=== PATIENT | female | born 1980 | race Caucasian/White ===

== ENCOUNTER 2016-10-22 14:00 | Outpatient (RCR) | payer MEDICAID | END 2016-10-23 | disposition home or self-care (01) | LOC: M OUTALCOH 14:00 | PROVIDERS: ATTEND Psychiatry & Neurology Psychiatry | DX: F10.20 Alcohol dependence, uncomplicated (principal); F12.20 Cannabis dependence, uncomplicated; Z72.0 Tobacco use ==

== ENCOUNTER 2016-11-15 16:00 | Outpatient (RCR) | payer MEDICAID | END 2016-11-20 | LOC: M OUTALCOH 16:00 | PROVIDERS: ATTEND Psychiatry & Neurology Psychiatry | DX: F10.20 Alcohol dependence, uncomplicated (principal); F12.20 Cannabis dependence, uncomplicated; Z72.0 Tobacco use ==

== ENCOUNTER 2016-12-20 15:00 | Outpatient (RCR) | payer OTHER | END 2016-12-21 | LOC: M OUTALCOH 15:00 | PROVIDERS: ATTEND Psychiatry & Neurology Psychiatry | DX: F10.20 Alcohol dependence, uncomplicated (principal); F12.20 Cannabis dependence, uncomplicated; Z72.0 Tobacco use ==

== ENCOUNTER 2017-01-18 10:00 | Outpatient (RCR) | payer OTHER | END 2017-01-20 | LOC: M OUTALCOH 10:00 | PROVIDERS: ATTEND Psychiatry & Neurology Psychiatry | DX: F10.20 Alcohol dependence, uncomplicated (principal); F12.20 Cannabis dependence, uncomplicated; Z72.0 Tobacco use ==

== ENCOUNTER → 2017-02-20 | Outpatient (RCR) | payer OTHER | LOC: M OUTALCOH 01-23 15:48 | PROVIDERS: ATTEND Psychiatry & Neurology Psychiatry | DX: F10.20 Alcohol dependence, uncomplicated (principal); F12.20 Cannabis dependence, uncomplicated; Z72.0 Tobacco use ==

== ENCOUNTER → 2017-03-22 | Outpatient (RCR) | payer OTHER | LOC: M OUTALCOH 02-22 10:52 | PROVIDERS: ATTEND Psychiatry & Neurology Psychiatry | DX: Z13.9 Encounter for screening, unspecified (principal); F10.20 Alcohol dependence, uncomplicated; F12.20 Cannabis dependence, uncomplicated; Z72.0 Tobacco use ==

== ENCOUNTER 2017-04-18 10:00 | Outpatient (RCR) | payer OTHER | END 2017-04-22 | LOC: M OUTALCOH 10:00 | PROVIDERS: ATTEND Psychiatry & Neurology Psychiatry | DX: F10.20 Alcohol dependence, uncomplicated (principal); F12.20 Cannabis dependence, uncomplicated; Z72.0 Tobacco use ==

== ENCOUNTER → 2017-05-23 | Outpatient (RCR) | payer OTHER | LOC: M OUTALCOH 04-30 14:52 | PROVIDERS: ATTEND Psychiatry & Neurology Psychiatry | DX: F10.20 Alcohol dependence, uncomplicated (principal); F12.20 Cannabis dependence, uncomplicated; F17.210 Nicotine dependence, cigarettes, uncomplicated ==

== ENCOUNTER 2017-06-20 10:00 | Outpatient (RCR) | payer OTHER | END 2017-06-22 | LOC: M OUTALCOH 10:00 | PROVIDERS: ATTEND Psychiatry & Neurology Psychiatry | DX: F10.20 Alcohol dependence, uncomplicated (principal); F12.20 Cannabis dependence, uncomplicated; Z72.0 Tobacco use ==

== ENCOUNTER → 2017-08-22 | Outpatient (RCR) | payer OTHER | LOC: M OUTALCOH 07-25 16:00 | PROVIDERS: ATTEND Psychiatry & Neurology Psychiatry | DX: F10.20 Alcohol dependence, uncomplicated (principal); Z72.0 Tobacco use; F12.20 Cannabis dependence, uncomplicated ==

== ENCOUNTER 2017-09-19 15:33 | Outpatient (RCR) | payer OTHER | END 2017-09-22 | LOC: M OUTALCOH 15:33 | DX: F10.20 Alcohol dependence, uncomplicated (principal); Z72.0 Tobacco use; F12.20 Cannabis dependence, uncomplicated ==

== ENCOUNTER 2017-10-03 16:00 | Outpatient (RCR) | payer OTHER | END 2017-10-23 | LOC: M OUTALCOH 10-07 16:00 | DX: F10.20 Alcohol dependence, uncomplicated (principal); Z72.0 Tobacco use; F12.20 Cannabis dependence, uncomplicated ==

== ENCOUNTER 2017-11-06 16:00 | Outpatient (RCR) | payer OTHER | END 2017-11-20 | LOC: M OUTALCOH 11-11 16:00 | DX: F10.20 Alcohol dependence, uncomplicated (principal); Z72.0 Tobacco use; F12.20 Cannabis dependence, uncomplicated ==

== ENCOUNTER → 2017-11-18 | Outpatient (CLI) | payer OTHER | LOC: M SLEEP 19:24 | DX: G47.33 Obstructive sleep apnea (adult) (pediatric) (principal) | CPT/HCPCS: 95810 ==

== ENCOUNTER 2017-11-25 11:31 | Outpatient (RCR) | payer OTHER | END 2017-12-21 | LOC: M OUTALCOH 11-27 15:00 | DX: F10.20 Alcohol dependence, uncomplicated (principal); Z72.0 Tobacco use; F12.20 Cannabis dependence, uncomplicated ==

== ENCOUNTER → 2017-12-11 | Outpatient (CLI) | payer OTHER | LOC: M SLEEP 19:21 | DX: G47.33 Obstructive sleep apnea (adult) (pediatric) (principal) | CPT/HCPCS: 95811 ==

== ENCOUNTER 2017-12-25 10:25 | Outpatient (RCR) | payer OTHER | END 2018-01-20 | LOC: M OUTALCOH 10:25 | DX: F10.20 Alcohol dependence, uncomplicated (principal); F12.20 Cannabis dependence, uncomplicated; Z72.0 Tobacco use ==

== ENCOUNTER 2018-01-22 10:09 | Outpatient (RCR) | payer OTHER | END 2018-02-20 | LOC: M OUTALCOH 10:09 | DX: F10.20 Alcohol dependence, uncomplicated (principal); F12.20 Cannabis dependence, uncomplicated; Z72.0 Tobacco use ==

== ENCOUNTER 2018-02-27 14:35 | Outpatient (RCR) | payer OTHER | END 2018-03-22 | LOC: M OUTALCOH 14:35 | DX: F10.20 Alcohol dependence, uncomplicated (principal); Z72.0 Tobacco use; F12.20 Cannabis dependence, uncomplicated ==

== ENCOUNTER 2018-03-31 13:19 | Inpatient (IN) | payer OTHER ==
[2018-03-31] MEDS: NICOTINE 7 MG/24 HR TRANSDERMAL TD (09:00)
[2018-03-31 14:27] LABS: HEMATOCRIT 38.4 % (36.0-47.0); HEMOGLOBIN 13.6 g/dl (12.0-15.5); MEAN CORPUSCULAR HEMOGLOBIN 33.2 pg (27.0-33.0); MEAN CORPUSCULAR HGB CONC 35.4 g/dl (32.0-36.5); MEAN CORPUSCULAR VOLUME 93.7 fl (80.0-96.0); PLATELET COUNT, AUTOMATED 146 10^3/uL (150-450); RED CELL DISTRIBUTION WIDTH 12.2 % (11.5-14.5); WHITE BLOOD COUNT 8.6 10^3/uL (4.0-10.0)
[2018-03-31 14:51] LABS: CONTROL LINE HCG INT CTR LINE PRESENT; HCG, SERUM QUALITATIVE NEGATIVE (NEGATIVE)
[2018-03-31 15:06] LABS: ALBUMIN 4.1 GM/DL (3.2-5.2); ALBUMIN/GLOBULIN RATIO 1.03 (1.00-1.93); ALKALINE PHOSPHATASE 102 U/L (45-117); ALT/SGPT 36 U/L (12-78); ANION GAP 17 MEQ/L (8-16); AST/SGOT 42 U/L (7-37); BILIRUBIN,DIRECT 0.5 MG/DL (0.0-0.2); BILIRUBIN,TOTAL 1.2 MG/DL (0.2-1.0); BLOOD UREA NITROGEN 8 MG/DL (7-18); CALCIUM LEVEL 8.9 MG/DL (8.5-10.1); CARBON DIOXIDE LEVEL 22 MEQ/L (21-32); CHLORIDE LEVEL 100 MEQ/L (98-107); CREATININE FOR GFR 0.66 MG/DL (0.55-1.30); ETHYL ALCOHOL (ETHANOL) 0.035 % (0.000-0.010); GLOMERULAR FILTRATION RATE > 60.0 (>60); GLUCOSE, FASTING 102 MG/DL (70-100); POTASSIUM SERUM 3.9 MEQ/L (3.5-5.1); SALICYLATE LEVEL < 1.7 MG/DL (5.0-30.0); SODIUM LEVEL 139 MEQ/L (136-145); TOTAL PROTEIN 8.1 GM/DL (6.4-8.2)
[2018-03-31 15:09] LABS: ACETAMINOPHEN LEVEL < 2.0 UG/ML (10.0-30.0)
[2018-03-31 16:19] LABS: AMPHETAMINES LEVEL URINE NEGATIVE (NEGATIVE); BARBITURATES URINE NEGATIVE (NEGATIVE); BENZODIAZEPINES URINE NEGATIVE (NEGATIVE); CANNABINOIDS URINE NEGATIVE (NEGATIVE); COCAINE METABOLITE URINE NEGATIVE (NEGATIVE); METHADONE URINE NEGATIVE (NEGATIVE); OPIATES URINE NEGATIVE (NEGATIVE); PHENCYCLIDINE URINE NEGATIVE (NEGATIVE)
[2018-03-31] MEDS ORDERED: MAALOX 30 ML SUSP *UDC PO (18:15)
[2018-03-31] MEDS ORDERED: MOM 30ML SUSPENSION UDC PO (18:15)
[2018-03-31] MEDS: ACAMPROSATE CALCIUM 333 MG TABLET (CAMPRAL) PO (21:50)
[2018-04-01] MEDS: VENLAFAXINE **XR** 75MG CAPSULE PO (08:42)
[2018-04-01] MEDS: ACAMPROSATE CALCIUM 333 MG TABLET (CAMPRAL) PO ×3 (08:42→21:51)
[2018-04-01] MEDS: NICOTINE 7 MG/24 HR TRANSDERMAL TD (09:00)
[2018-04-01] MEDS: FEXOFENADINE 60 MG TAB PO (11:13)
[2018-04-01] MEDS: FERROUS SULFATE 325MG TAB PO (11:14)
[2018-04-01] MEDS: FAMOTIDINE 20 MG TAB PO (11:14)
[2018-04-01] MEDS: PANTOPRAZOLE 40MG TAB (PROTONIX) PO (11:14)
[2018-04-01] MEDS: GABAPENTIN 300 MG CAP PO ×3 (11:14→21:49)
[2018-04-01] MEDS: levETIRAcetam 250MG TABLET (KEPPRA) PO ×2 (11:14→21:49)
[2018-04-01] MEDS: LOSARTAN 50 MG TAB PO (11:21)
[2018-04-01] MEDS: hydroCHLOROthiazide 12.5 MG CAPSULE PO (14:12)
[2018-04-01 16:59] LABS: BEDSIDE GLUCOSE 146 MG/DL (70-105)
[2018-04-01] MEDS: metFORMIN (GLUCOPHAGE) 1000 MG TABLET PO (17:43)
[2018-04-02 06:26] LABS: BEDSIDE GLUCOSE 124 MG/DL (70-105)
[2018-04-02] MEDS: VENLAFAXINE **XR** 75MG CAPSULE PO (08:49)
[2018-04-02] MEDS: ACAMPROSATE CALCIUM 333 MG TABLET (CAMPRAL) PO ×3 (08:50→21:17)
[2018-04-02] MEDS: FAMOTIDINE 20 MG TAB PO (08:50)
[2018-04-02] MEDS: FERROUS SULFATE 325MG TAB PO (08:50)
[2018-04-02] MEDS: GABAPENTIN 300 MG CAP PO ×3 (08:50→21:18)
[2018-04-02] MEDS: hydroCHLOROthiazide 12.5 MG CAPSULE PO (08:50)
[2018-04-02] MEDS: FEXOFENADINE 60 MG TAB PO (08:50)
[2018-04-02] MEDS: PANTOPRAZOLE 40MG TAB (PROTONIX) PO (08:50)
[2018-04-02] MEDS: levETIRAcetam 250MG TABLET (KEPPRA) PO ×2 (08:50→21:18)
[2018-04-02] MEDS: metFORMIN (GLUCOPHAGE) 1000 MG TABLET PO ×2 (08:50→17:19)
[2018-04-02] MEDS: LOSARTAN 50 MG TAB PO (08:51)
[2018-04-02] MEDS: NICOTINE 7 MG/24 HR TRANSDERMAL TD (08:51)
[2018-04-02] MEDS: metFORMIN (GLUCOPHAGE) 500 MG TAB PO (11:39)
[2018-04-02 16:14] LABS: BEDSIDE GLUCOSE 138 MG/DL (70-105)
[2018-04-02] MEDS: diphenhydrAMINE 25 MG CAP PO (16:14)
[2018-04-02 18:58] LABS: ALBUMIN 3.7 GM/DL (3.2-5.2); ALBUMIN/GLOBULIN RATIO 0.88 (1.00-1.93); ALKALINE PHOSPHATASE 123 U/L (45-117); ALT/SGPT 34 U/L (12-78); ANION GAP 11 MEQ/L (8-16); AST/SGOT 59 U/L (7-37); BLOOD UREA NITROGEN 13 MG/DL (7-18); CALCIUM LEVEL 9.1 MG/DL (8.5-10.1); CARBON DIOXIDE LEVEL 26 MEQ/L (21-32); CHLORIDE LEVEL 102 MEQ/L (98-107); CREATININE FOR GFR 0.98 MG/DL (0.55-1.30); GLOMERULAR FILTRATION RATE > 60.0 (>60); GLUCOSE, FASTING 109 MG/DL (70-100); SODIUM LEVEL 139 MEQ/L (136-145); TOTAL PROTEIN 7.9 GM/DL (6.4-8.2)
[2018-04-03 06:35] LABS: BEDSIDE GLUCOSE 90 MG/DL (70-105)
[2018-04-03 08:00] LABS: BASO # 0.1 10^3/uL (0.0-0.2); BASO % 0.8 % (0.0-1.0); EOS # 0.4 10^3/uL (0.0-0.50); EOS % 6.5 % (0.0-3.0); HEMATOCRIT 39.4 % (36.0-47.0); HEMOGLOBIN 13.9 g/dl (12.0-15.5); IMMATURE GRANULOCYTE % 0.3 % (0-3.0); LYMPH % 34.2 % (24.0-44.0); MEAN CORPUSCULAR HEMOGLOBIN 33.3 pg (27.0-33.0); MEAN CORPUSCULAR HGB CONC 35.3 g/dl (32.0-36.5); MEAN CORPUSCULAR VOLUME 94.3 fl (80.0-96.0); MONO # 0.5 10^3/uL (0.0-0.8); NEUTROPHILS % 50.2 % (36.0-66.0); PLATELET COUNT, AUTOMATED 127 10^3/uL (150-450); RED BLOOD COUNT 4.18 10^6/uL (4.00-5.40); RED CELL DISTRIBUTION WIDTH 12.5 % (11.5-14.5)
[2018-04-03 08:20] LABS: ALBUMIN 3.8 GM/DL (3.2-5.2); ALBUMIN/GLOBULIN RATIO 0.88 (1.00-1.93); ALKALINE PHOSPHATASE 118 U/L (45-117); ALT/SGPT 35 U/L (12-78); ANION GAP 7 MEQ/L (8-16); AST/SGOT 51 U/L (7-37); BILIRUBIN,TOTAL 1.9 MG/DL (0.2-1.0); BLOOD UREA NITROGEN 12 MG/DL (7-18); CALCIUM LEVEL 9.4 MG/DL (8.5-10.1); CARBON DIOXIDE LEVEL 31 MEQ/L (21-32); CHLORIDE LEVEL 103 MEQ/L (98-107); CREATININE FOR GFR 0.71 MG/DL (0.55-1.30); GLOMERULAR FILTRATION RATE > 60.0 (>60); GLUCOSE, FASTING 153 MG/DL (70-100); POTASSIUM SERUM 3.8 MEQ/L (3.5-5.1); SODIUM LEVEL 141 MEQ/L (136-145); TOTAL PROTEIN 8.1 GM/DL (6.4-8.2)
[2018-04-03] MEDS: NICOTINE 7 MG/24 HR TRANSDERMAL TD (09:00)
[2018-04-03] MEDS: VENLAFAXINE **XR** 75MG CAPSULE PO (09:16)
[2018-04-03] MEDS: PANTOPRAZOLE 40MG TAB (PROTONIX) PO (09:16)
[2018-04-03] MEDS: hydroCHLOROthiazide 12.5 MG CAPSULE PO (09:17)
[2018-04-03] MEDS: levETIRAcetam 250MG TABLET (KEPPRA) PO ×2 (09:17→20:51)
[2018-04-03] MEDS: LOSARTAN 50 MG TAB PO (09:17)
[2018-04-03] MEDS: metFORMIN (GLUCOPHAGE) 1000 MG TABLET PO ×2 (09:17→17:01)
[2018-04-03] MEDS: GABAPENTIN 300 MG CAP PO ×3 (09:17→20:53)
[2018-04-03] MEDS: FEXOFENADINE 60 MG TAB PO (09:18)
[2018-04-03] MEDS: FERROUS SULFATE 325MG TAB PO (09:18)
[2018-04-03] MEDS: ACAMPROSATE CALCIUM 333 MG TABLET (CAMPRAL) PO ×3 (09:18→20:50)
[2018-04-03] MEDS: FAMOTIDINE 20 MG TAB PO (09:18)
[2018-04-03] MEDS: metFORMIN (GLUCOPHAGE) 500 MG TAB PO (11:36)
[2018-04-03 16:30] LABS: BEDSIDE GLUCOSE 146 MG/DL (70-105)
[2018-04-03] MEDS: NAPROXEN 250 MG TAB PO (20:51)
[2018-04-03] MEDS: traZODone 50 MG TAB PO (22:31)
[2018-04-04 00:12] LABS: LEVETIRACETAM (KEPPRA) 45.1 ug/mL (10.0-40.0)
[2018-04-04 06:33] LABS: BEDSIDE GLUCOSE 120 MG/DL (70-105)
[2018-04-04] MEDS: LOSARTAN 50 MG TAB PO (08:43)
[2018-04-04] MEDS: PANTOPRAZOLE 40MG TAB (PROTONIX) PO (08:43)
[2018-04-04] MEDS: VENLAFAXINE **XR** 75MG CAPSULE PO (08:43)
[2018-04-04] MEDS: FERROUS SULFATE 325MG TAB PO (08:43)
[2018-04-04] MEDS: metFORMIN (GLUCOPHAGE) 1000 MG TABLET PO (08:44)
[2018-04-04] MEDS: FAMOTIDINE 20 MG TAB PO (08:44)
[2018-04-04] MEDS: hydroCHLOROthiazide 12.5 MG CAPSULE PO (08:44)
[2018-04-04] MEDS: ACAMPROSATE CALCIUM 333 MG TABLET (CAMPRAL) PO (08:44)
[2018-04-04] MEDS: levETIRAcetam 250MG TABLET (KEPPRA) PO (08:44)
[2018-04-04] MEDS: GABAPENTIN 300 MG CAP PO (08:44)
[2018-04-04] MEDS: FEXOFENADINE 60 MG TAB PO (08:44)
[2018-04-04] MEDS: NICOTINE 7 MG/24 HR TRANSDERMAL TD (08:46)
[2018-04-04] MEDS: metFORMIN (GLUCOPHAGE) 500 MG TAB PO (11:20)
== END 2018-04-04 14:45 | disposition home or self-care (01) | DRG 775 ==
LOC: M ED 13:19 → M ED INP 18:05 → M PSY 19:15
DX: F10.14 Alcohol abuse with alcohol-induced mood disorder (principal); F10.129 Alcohol abuse with intoxication, unspecified; F34.1 Dysthymic disorder; G40.909 Epilepsy, unspecified, not intractable, without status epilepticus; K21.9 Gastro-esophageal reflux disease without esophagitis; E11.9 Type 2 diabetes mellitus without complications; I10 Essential (primary) hypertension; J30.9 Allergic rhinitis, unspecified; G47.33 Obstructive sleep apnea (adult) (pediatric); E66.9 Obesity, unspecified; Z68.41 Body mass index [BMI] 40.0-44.9, adult; R21 Rash and other nonspecific skin eruption; F17.210 Nicotine dependence, cigarettes, uncomplicated; E61.1 Iron deficiency; Z79.84 Long term (current) use of oral hypoglycemic drugs; Z79.899 Other long term (current) drug therapy; Z87.820 Personal history of traumatic brain injury

== ENCOUNTER 2018-04-10 15:07 | Outpatient (RCR) | payer OTHER | END 2018-04-22 | LOC: M OUTALCOH 15:07 | DX: F10.20 Alcohol dependence, uncomplicated (principal); F12.20 Cannabis dependence, uncomplicated; Z72.0 Tobacco use ==

== ENCOUNTER 2018-05-29 15:28 | Outpatient (RCR) | payer OTHER | END 2018-06-22 | LOC: M OUTALCOH 06-05 11:00 | DX: F10.20 Alcohol dependence, uncomplicated (principal); Z72.0 Tobacco use; F12.20 Cannabis dependence, uncomplicated ==

== ENCOUNTER 2018-07-22 14:28 | Outpatient (RCR) | payer OTHER | END 2018-07-23 | LOC: M OUTALCOH 14:28 | DX: F10.20 Alcohol dependence, uncomplicated (principal); Z72.0 Tobacco use; F12.20 Cannabis dependence, uncomplicated ==

== ENCOUNTER 2018-07-30 10:30 | Outpatient (RCR) | payer OTHER | END 2018-08-22 | LOC: M OUTALCOH 08-21 11:00 | DX: F10.20 Alcohol dependence, uncomplicated (principal); F12.20 Cannabis dependence, uncomplicated; Z72.0 Tobacco use ==

== ENCOUNTER 2018-09-11 11:00 | Outpatient (RCR) | payer OTHER ==
[~2018-09-11 11:00] MED LIST: ACAM0.05 PO; B COTAB3 PO; EFFE150C2 PO; FERR1TAB8 PO; FEXO180T58 PO; GABA-843 PO; LEVE750T5 PO; LOSA50TA5 PO; METF10004 PO; METF500T13 PO; NAPR500T6 PO; PANT40TA3 PO; TRAZO50TA PO; VENL75CA47 PO; VITA-122 PO; VIVI380I IM
[2018-09-19] MEDS ORDERED: GABA-1171 PO (23:31)
[2018-09-19] MEDS ORDERED: VITA1TAB27 PO (23:31)
[2018-09-19] MEDS ORDERED: FERR325T16 PO (23:31)
[2018-09-19] MEDS ORDERED: FURO20TA2 PO (23:32)
[2018-09-19] MEDS ORDERED: FOLI1TAB11 PO (23:32)
[2018-09-19] MEDS ORDERED: GLIP5TAB8 PO (23:32)
[2018-09-19] MEDS ORDERED: SPIR50TA4 PO (23:32)
[2018-09-19] MEDS ORDERED: POTA1TAB14 PO (23:32)
[2018-09-19] MEDS ORDERED: TAB-TAB PO (23:32)
[2018-09-19] MEDS ORDERED: CITA20TA4 PO (23:32)
[2018-09-19] MEDS ORDERED: VENL75CA47 PO (23:35)
[2018-09-19] MEDS ORDERED: VIVI380I IM (23:38)
[2018-09-19] MEDS ORDERED: ACAM0.05 PO (23:38)
== END 2018-09-22 ==
LOC: M OUTALCOH 11:00
PROVIDERS: ATTEND Psychiatry & Neurology Psychiatry
DX: F10.20 Alcohol dependence, uncomplicated (principal); F12.20 Cannabis dependence, uncomplicated; Z72.0 Tobacco use

== ENCOUNTER 2018-09-19 18:49 | Emergency (ER) | payer OTHER ==
[~2018-09-19] VITALS: Ht 177.8 cm; Wt 113.6 kg
[2018-09-19 19:50] LABS: VENOUS HCO3 27.7 MEQ/L (23.0-27.0); VENOUS O2 SATURATION 62.6 % (60.0-80.0); VENOUS PARTIAL PRESSURE O2 33.9 mmHg (30.0-50.0); VENOUS STANDARD HCO3 27.3 MEQ/L; VENOUS TOTAL CO2 28.8 MEQ/L (24.0-28.0)
[2018-09-19 19:55] LABS: HEMATOCRIT 32.3 % (36.0-47.0); HEMOGLOBIN 11.1 g/dl (12.0-15.5); MEAN CORPUSCULAR HEMOGLOBIN 32.5 pg (27.0-33.0); MEAN CORPUSCULAR HGB CONC 34.4 g/dl (32.0-36.5); MEAN CORPUSCULAR VOLUME 94.4 fl (80.0-96.0); RED BLOOD COUNT 3.42 10^6/uL (4.00-5.40); WHITE BLOOD COUNT 13.8 10^3/uL (4.0-10.0)
[2018-09-19 20:18] LABS: PLATELET COUNT, AUTOMATED 84 10^3/uL (150-450)
[2018-09-19 20:19] LABS: OSMOLALITY SERUM 292 MOSM/KG (275-295)
[2018-09-19 20:22] LABS: EOSINOPHILS 3 % (0-5); LYMPHOCYTES 6 % (16-52); METAMYELOCYTES 5 % (0-0); MONOCYTES 4 % (0-8); NEUTROPHILS 60 % (35-75); PLATELET ESTIMATE DECREASED (NORMAL); TOXIC GRANULATION 1+
[2018-09-19 20:23] LABS: OVALOCYTES 1+; POLYCHROMASIA 1+; TOXIC VACUOLATION 1+
[2018-09-19 20:27] LABS: HCG, SERUM QUALITATIVE NEGATIVE (NEGATIVE)
[2018-09-19] MEDS ORDERED: NS 1,000 ML IV ONE (20:45)
[2018-09-19 20:47] LABS: ALBUMIN 2.2 GM/DL (3.2-5.2); ALT/SGPT 34 U/L (12-78); BILIRUBIN,DIRECT 4.7 MG/DL (0.0-0.2); BILIRUBIN,TOTAL 7.4 MG/DL (0.2-1.0); BLOOD UREA NITROGEN 15 MG/DL (7-18); CALCIUM LEVEL 8.1 MG/DL (8.5-10.1); CARBON DIOXIDE LEVEL 27 MEQ/L (21-32); CHLORIDE LEVEL 103 MEQ/L (98-107); CPK CREATINE PHOSPHOKINASE 508 U/L (26-192); ETHYL ALCOHOL (ETHANOL) < 0.003 % (0.000-0.010); GLOMERULAR FILTRATION RATE > 60.0 (>60); GLUCOSE, FASTING 89 MG/DL (70-100); MB/CK RELATIVE INDEX 0.57 (< OR =4); POTASSIUM SERUM 3.2 MEQ/L (3.5-5.1); SODIUM LEVEL 140 MEQ/L (136-145); TOTAL PROTEIN 6.9 GM/DL (6.4-8.2); TROPONIN I < 0.02 NG/ML (< 0.10)
[2018-09-19 20:48] LABS: ACETAMINOPHEN LEVEL < 2.0 UG/ML (10.0-30.0); SALICYLATE LEVEL < 1.7 MG/DL (5.0-30.0)
--- NOTE | 2018-09-19 20:52 | REP ---
Clinical: Altered mental status and trauma . Technique: Axial noncontrast images from the skull base to the thoracic inlet with coronal and sagittal re-formations Findings: Normal alignment and lordosis is maintained. Coronal images demonstrate mild levoconvex scoliosis. Cervical vertebral bodies including transverse processes and spinous processes are intact and there is no evidence for acute fracture / compression injury or subluxation. Spinal canal is patent. Posterior elements are intact. Paravertebral soft tissues are normal. Impression: Normal age-appropriate noncontrast cervical spine CT. No evidence for acute pathology or trauma/injury. Electronically Signed by Scott Tenorio MD 09/19/2018 08:43 P
--- NOTE | 2018-09-19 20:54 | REP ---
Clinical: Trauma. Technique: Axial noncontrast images through the facial bones to include the mandible with coronal and sagittal re-formations. Findings: Evidence for prior right craniotomy involving the visualized frontotemporal region. The osseous structures are otherwise intact and there is no evidence for fracture or dislocation. Specifically, the bilateral zygomatic arches, nasal bones, and mandible including bilateral temporomandibular joints appear normal and symmetric. The sinuses and mastoid air cells are all well aerated and clear without fluid level to suggest occult trauma. The bilateral orbits including the globes and intraconal contents appear symmetric and normal. The surrounding soft tissues are grossly unremarkable. Impression: Right frontotemporal craniotomy. No evidence for acute pathology or trauma/injury. Electronically Signed by Scott Tenorio MD 09/19/2018 08:45 P
--- NOTE | 2018-09-19 20:54 | REP ---
Clinical: Altered mental status. Technique: Axial noncontrast images from the skull base to the vertex. Comparison: None. Findings: The patient is status post craniotomy involving the right hemisphere with underlying postsurgical changes including volume loss and encephalomalacia. The ventricles are symmetric. Robbins-white differentiation is relatively well maintained. No acute intracranial hemorrhage, mass or mass effect. No acute extra-axial fluid collection. No acute calvarial trauma or pathology. Sinuses and mastoid air cells are clear. Impression: 1. Postsurgical changes involving the right hemisphere including prior craniotomy with underlying volume loss and encephalomalacia. 2. No acute intracranial pathology or trauma/injury appreciated. Electronically Signed by Scott Tenorio MD 09/19/2018 08:45 P
[2018-09-19] MEDS ORDERED: ISOVUE-370 76% 100ML VIAL (Q9967) As Ordered ONE (20:55)
--- NOTE | 2018-09-19 21:04 | ECGEPIP ---
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
[2018-09-19 21:19] LABS: INR 2.54; PROTHROMBIN TIME 27.9 SECONDS (12.1-14.4)
[2018-09-19 21:20] LABS: PARTIAL THROMBOPLASTIN TIME 38.7 SECONDS (25.4-37.6)
--- NOTE | 2018-09-19 22:08 | REP ---
Clinical: Leukocytosis with given history of altered mental status and trauma. Technique: Axial contrast enhanced images from the thoracic inlet to the upper abdomen using 100 ml Isovue 370 intravenous contrast material including coronal and sagittal re-formations. Findings: Marked alveolar opacities are asymmetrically identified involving the right hemithorax. Early ground-glass opacities and subtle alveolar infiltrates are also noted forming within the left upper lobe and left lower lobe. No pleural effusion. No pneumothorax. Tracheobronchial tree appears patent. No adenopathy. Thoracic aorta appears normal. Heart and pericardium are grossly unremarkable and without cardiomegaly or pericardial effusion. Surrounding musculoskeletal structures appear intact. Limited upper abdomen demonstrates dilated gallbladder with cholelithiasis as well as nodular contour to the liver and increased upper abdominal vasculature suggesting cirrhosis and portal venous hypertension. Evidence for gastric bypass surgery noted. Impression: 1. Findings suggest predominately asymmetric unilateral pulmonary air space disease. Differential diagnosis includes but is not limited to unilateral pulmonary edema which may be related to underlying mitral regurgitation, cardiac dysfunction, pneumonitis, and trauma. 2. Upper abdomen demonstrates cholelithiasis along with findings to suggest cirrhosis and portal venous hypertension. Electronically Signed by Scott Tenorio MD 09/19/2018 10:00 P
--- NOTE | 2018-09-19 22:13 | REP ---
Clinical: Leukocytosis with given history of altered mental status and trauma. Technique: Axial contrast enhanced images from the lung bases to the pubic symphysis using 100 ml Isovue 370 intravenous contrast material with coronal and sagittal re-formations. Comparison: None. Findings: Lung bases demonstrate asymmetric right-sided air space disease. The liver has a subtle nodular contour and increased vascularity within the upper abdomen including esophageal varices is consistent with cirrhosis and portal venous hypertension. Spleen, pancreas, bilateral adrenal glands and kidneys are grossly normal. The gallbladder is distended with multiple gallstones but no wall thickening or pericholecystic fluid to suggest acute cholecystitis. The enteric system demonstrates evidence for gastric bypass surgery. Diffuse colonic diverticulosis noted without acute diverticulitis. Mesenteric infiltration and mild mural thickening involving the ascending colon is nonspecific in the setting of cirrhosis. There is no evidence for bowel obstruction. Pelvis demonstrates collapsed normal bladder and age-appropriate uterus/adnexa. No significant ascites. No free air. No significant adenopathy. Abdominal aorta without aneurysm or dissection. Musculoskeletal structures without focal osseous abnormality. Impression: 1. Above-mentioned findings are consistent with cirrhosis and portal venous hypertension. 2. Cholelithiasis. 3. Scattered diverticular disease without acute diverticulitis. Electronically Signed by Scott Tenorio MD 09/19/2018 10:05 P
[2018-09-19 23:09] LABS: AMPHETAMINES LEVEL URINE NEGATIVE (NEGATIVE); BARBITURATES URINE NEGATIVE (NEGATIVE); BENZODIAZEPINES URINE NEGATIVE (NEGATIVE); CANNABINOIDS URINE NEGATIVE (NEGATIVE); COCAINE METABOLITE URINE NEGATIVE (NEGATIVE); METHADONE URINE NEGATIVE (NEGATIVE); OPIATES URINE NEGATIVE (NEGATIVE); PHENCYCLIDINE URINE NEGATIVE (NEGATIVE)
[2018-09-19] MEDS ORDERED: PIPERACILLIN/TAZOBACTAM SOD 3.375 GM in D5W MINI-BAG PLUS 50 ML IV ONE (23:15)
[2018-09-19] MEDS ORDERED: FERR325T16 PO (23:31)
[2018-09-19] MEDS ORDERED: VITA1TAB27 PO (23:31)
[2018-09-19] MEDS ORDERED: GABA-1171 PO (23:31)
[2018-09-19] MEDS ORDERED: CITA20TA4 PO (23:32)
[2018-09-19] MEDS ORDERED: FURO20TA2 PO (23:32)
[2018-09-19] MEDS ORDERED: TAB-TAB PO (23:32)
[2018-09-19] MEDS ORDERED: FOLI1TAB11 PO (23:32)
[2018-09-19] MEDS ORDERED: SPIR50TA4 PO (23:32)
[2018-09-19] MEDS ORDERED: POTA1TAB14 PO (23:32)
[2018-09-19] MEDS ORDERED: GLIP5TAB8 PO (23:32)
[2018-09-19] MEDS ORDERED: VENL75CA47 PO (23:35)
[2018-09-19] MEDS ORDERED: ACAM0.05 PO (23:38)
[2018-09-19] MEDS ORDERED: VIVI380I IM (23:38)
[2018-09-20 01:00] VITALS: BP 118/58
--- NOTE | 2018-09-20 07:30 | REP ---
Clinical: Chest pain and altered mental status. Technique: Upright AP view of the chest. Findings: Right-sided infiltrates are appreciated. No effusion. No pneumothorax. Mediastinum and cardiac silhouette are grossly normal. Skeletal structures are grossly intact. Impression: Limited portable chest x-ray with right sided opacities/infiltrates. Electronically Signed by Scott Tenorio MD 09/20/2018 07:22 A
== END 2018-09-20 01:23 | disposition home or self-care (01) ==
LOC: EDBD 18:49 → M ED 18:49
DX: R41.82 Altered mental status, unspecified (principal); K81.9 Cholecystitis, unspecified; K74.60 Unspecified cirrhosis of liver; Z79.899 Other long term (current) drug therapy
CPT/HCPCS: 36415; 70450; 70486; 71045; 71260; 72125; 74177; 80048; 80076; 80307; 82140; 82550; 82553; 82803; 83605; 83930; 84443; 84703; 85025; 85049; 85055; 85610; 85730; 87040; 93005; 93041; 96361; 96374; 99285; G0480; J2543; Q9967

== ENCOUNTER 2018-09-24 11:23 | Inpatient (IN) | payer OTHER ==
[~2018-09-24] VITALS: Ht 177.8 cm; Wt 133.7 kg
[~2018-09-24 11:23] MED LIST changes: +CITA20TA4 PO; +FERR325T16 PO; +FOLI1TAB11 PO; +FURO20TA2 PO; +GABA-1171 PO; +GLIP5TAB8 PO; +POTA1TAB14 PO; +SPIR50TA4 PO; +TAB-TAB PO; +VITA1TAB27 PO
[2018-09-24 12:07] LABS: HEMATOCRIT 34.5 % (36.0-47.0); HEMOGLOBIN 11.5 g/dl (12.0-15.5); MEAN CORPUSCULAR HEMOGLOBIN 32.5 pg (27.0-33.0); MEAN CORPUSCULAR HGB CONC 33.3 g/dl (32.0-36.5); MEAN CORPUSCULAR VOLUME 97.5 fl (80.0-96.0); PLATELET COUNT, AUTOMATED 121 10^3/uL (150-450); RED BLOOD COUNT 3.54 10^6/uL (4.00-5.40); WHITE BLOOD COUNT 9.1 10^3/uL (4.0-10.0)
[2018-09-24 12:53] LABS: ACETAMINOPHEN LEVEL < 2.0 UG/ML (10.0-30.0); ALT/SGPT 48 U/L (12-78); BILIRUBIN,DIRECT 3.8 MG/DL (0.0-0.2); BILIRUBIN,TOTAL 5.1 MG/DL (0.2-1.0); BLOOD UREA NITROGEN 5 MG/DL (7-18); CALCIUM LEVEL 7.7 MG/DL (8.5-10.1); CARBON DIOXIDE LEVEL 24 MEQ/L (21-32); CHLORIDE LEVEL 104 MEQ/L (98-107); CREATININE FOR GFR 0.74 MG/DL (0.55-1.30); ETHYL ALCOHOL (ETHANOL) 0.044 % (0.000-0.010); GLOMERULAR FILTRATION RATE > 60.0 (>60); GLUCOSE, FASTING 74 MG/DL (70-100); POTASSIUM SERUM 3.2 MEQ/L (3.5-5.1); SALICYLATE LEVEL < 1.7 MG/DL (5.0-30.0); SODIUM LEVEL 139 MEQ/L (136-145); TOTAL PROTEIN 6.7 GM/DL (6.4-8.2)
[2018-09-24] MEDS ORDERED: CERTTAB8 PO ×2 (12:58)
[2018-09-24] MEDS ORDERED: THERTAB PO (12:58)
[2018-09-24] MEDS ORDERED: AMOX875T2 PO (12:58)
[2018-09-24 13:02] LABS: HCG, SERUM QUALITATIVE NEGATIVE (NEGATIVE)
[2018-09-24 13:14] LABS: AMPHETAMINES LEVEL URINE NEGATIVE (NEGATIVE); BARBITURATES URINE NEGATIVE (NEGATIVE); BENZODIAZEPINES URINE NEGATIVE (NEGATIVE); CANNABINOIDS URINE NEGATIVE (NEGATIVE); COCAINE METABOLITE URINE NEGATIVE (NEGATIVE); METHADONE URINE NEGATIVE (NEGATIVE); OPIATES URINE NEGATIVE (NEGATIVE); PHENCYCLIDINE URINE NEGATIVE (NEGATIVE)
[2018-09-24] MEDS ORDERED: levETIRAcetam 250MG TABLET (KEPPRA) PO ONE (13:15)
[2018-09-24] MEDS ORDERED: glipiZIDE (GLUCOTROL) 5 MG TAB PO ONE (13:15)
[2018-09-24] MEDS ORDERED: POTASSIUM CHLORIDE 10 MEQ SR TABLET PO ONE (14:15)
[2018-09-24] MEDS ORDERED: LORazepam 2 MG TAB PO PRN (14:30)
[2018-09-24] MEDS ORDERED: MOM 30ML SUSPENSION UDC PO PRN (14:30)
[2018-09-24] MEDS ORDERED: MAALOX 30 ML SUSP *UDC PO PRN (14:30)
[2018-09-24] MEDS: MULTIVITAMINS/MINERALS THERAP 1 TAB PO SCH (14:48)
[2018-09-24] MEDS: FOLIC ACID 1 MG TAB PO SCH (14:55)
[2018-09-24] MEDS ORDERED: THIAMINE 100 MG TAB PO ONE (15:00)
[2018-09-24 17:00] VITALS: BP 152/78
[2018-09-24] MEDS: GABAPENTIN 100 MG CAP PO SCH ×2 (17:11→21:55)
[2018-09-24 17:42] VITALS: BP 152/78
[2018-09-24] MEDS: AUGMENTIN 875 MG TAB PO SCH (21:55)
[2018-09-24] MEDS: levETIRAcetam 250MG TABLET (KEPPRA) PO SCH (21:56)
[2018-09-24] MEDS: POTASSIUM CHLORIDE 10 MEQ SR TABLET PO SCH (21:56)
[2018-09-24] MEDS: THIAMINE 100 MG TAB PO SCH (21:56)
[2018-09-25 06:22] VITALS: BP 132/62
[2018-09-25] MEDS ORDERED: glipiZIDE (GLUCOTROL) 5 MG TAB PO SCH (07:30)
[2018-09-25] MEDS ORDERED: MUPIROCIN 2% OINT 22 GM TUBE TOP SCH (09:00)
[2018-09-25] MEDS: SPIRONOLACTONE 50 MG TAB PO SCH (09:19)
[2018-09-25] MEDS: FERROUS GLUCONATE 324 MG TAB PO SCH (09:19)
[2018-09-25] MEDS: AUGMENTIN 875 MG TAB PO SCH ×2 (09:20→20:34)
[2018-09-25] MEDS: levETIRAcetam 250MG TABLET (KEPPRA) PO SCH ×2 (09:20→20:35)
[2018-09-25] MEDS: CitaloPRAM (CeleXA) 20 MG TAB PO SCH (09:21)
[2018-09-25] MEDS: GABAPENTIN 100 MG CAP PO SCH ×3 (09:21→20:35)
[2018-09-25] MEDS: FOLIC ACID 1 MG TAB PO SCH (09:21)
[2018-09-25] MEDS: THIAMINE 100 MG TAB PO SCH ×2 (09:21→20:36)
[2018-09-25] MEDS: PANTOPRAZOLE 40MG TAB (PROTONIX) PO SCH (09:21)
[2018-09-25] MEDS: MULTIVITAMINS/MINERALS THERAP 1 TAB PO SCH (09:21)
[2018-09-25] MEDS: POTASSIUM CHLORIDE 10 MEQ SR TABLET PO SCH ×2 (09:22→20:35)
[2018-09-25] MEDS ORDERED: GLUCAGON FOR INJ 1 MG VIAL (J1610) SC PRN (09:45)
[2018-09-25] MEDS ORDERED: GLUCOSE 4 GM CHEW TABLET PO PRN (09:45)
[2018-09-25] MEDS ORDERED: DEXTROSE 50% 50 ML SYRINGE IV PRN (09:45)
[2018-09-25 10:05] LABS: HEMATOCRIT 33.4 % (36.0-47.0); HEMOGLOBIN 10.9 g/dl (12.0-15.5); MEAN CORPUSCULAR HEMOGLOBIN 32.3 pg (27.0-33.0); MEAN CORPUSCULAR HGB CONC 32.6 g/dl (32.0-36.5); MEAN CORPUSCULAR VOLUME 99.1 fl (80.0-96.0); PLATELET COUNT, AUTOMATED 133 10^3/uL (150-450); RED BLOOD COUNT 3.37 10^6/uL (4.00-5.40); WHITE BLOOD COUNT 10.9 10^3/uL (4.0-10.0)
--- NOTE | 2018-09-25 10:13 | HPEPDOC ---
[facility] Medical History & Physical Date of Admission Sep 24, 2018 History and Physical PCP: [facility], [place] ATTENDING: Dr. Kenyetta Andre HPI: 37 yo F [facility] unspecified [facility] disorder, being medically examined today. The patient is noted to be a very poor historian and response with "I don't know" to many questions. She provides very vague responses. The patient is able to provide little history regarding her recent hospitalization. The patient was seen in the emergency department 09/19/18 related to altered mental status and was apparently not taking her medications for history of cirrhosis. She was subsequently transferred to [facility] in [place] related to altered mental status/sclerosis. At the time of her evaluation 09/19/18 in the emergency department bruises to the chin and right chest were noted at that time. The patient is noted to still have bruising in the same areas. The patient states she cannot recall how they occurred. She states she may have fallen or had a seizure. She denies any falls or seizure activity since her discharge from [facility] on 09/22/18. The patient has a history of alcohol use, the patient states she had a few drinks with a neighbor on 09/23/18. She is also reporting a wound on the left buttock area, she cannot recall how long it has been there, or how it occurred. She states she is finishing a course of Augmentin for treatment of pneumonia following her discharge from [facility]. She states she has had diarrhea over the past few days. Denies any fevers, chills, weakness, fatigue, MITCHELL, CP, SOB, cough, palpitations, abdominal pain, N/V/D or changes in bowel or bladder habits. PMHx: Anxiety Depression Substance use Alcohol use. History of SI Seizure disorder. Per Patient, has leg shaking and falling. Follows with Dr Aviles. GERD NIDDM Iron deficiency Hypertension Allergic rhinitis SHANIKA, CPAP. Obesity. BMI 42.0 Cirrhosis. Follows with [facility]. PSHX: History of skull fracture status post fall in a parking lot 2014, chronic head pain. Gastric bypass Right ankle as a child SOCHX: Resides in: [facility]. Marital Status: Single Kids: None Employment: Unemployed Tobacco use: 4-5 per day ETOH: History of alcohol use since her early 20s. Patient states she drinks 1-2 times per week 2 drinks. She states she had "a few" drinks on 09/23/18 following her discharge from [facility] 09/22/18. Illicit Drugs: Previous marijuana use IV Drug Use: Denies Tattoos done unprofessionally: Denies FAMHX: Mother: Alive, hypertension, diabetes Father: Alive, well Siblings: One sister, half brother Alive, unknown Children: None Unexpected deaths due to medical reasons: None. ROS: As noted in HPI, otherwise 11pt ROS of systems reviewed and remarkable only for LMP unknown. PE: GEN: 37 yo F, appears unkept. No acute distress. Alert and oriented x 3. Slow to respond to questions. HEENT: Normocephalic, atraumatic. Pupils are equal, round, and reactive to light. Extraocular movements are intact. No nystagmus appreciated. Sclera are mildly icteric. Conjunctiva without injection. Nose midline. Nasal turbinates without bogginess. EACs both patent BL. TMs both visualized and [place] with good cone of light, no bulging or erythema. No facial asymmetry. Moist mucous membranes. Neck supple, trachea midline. No lymphadenopathy or thyromegaly appreciated. CHEST: Regular rate and rhythm, +S1, +S2 LUNGS: Clear to auscultation bilaterally. No wheezes, rales, or rhonchi. Breathing appears symmetric and easy. Patient is speaking in full sentences. No accessory muscle use. ABD: Round, soft, non-tender, non-distended. +Bowel sounds throughout. No rebound or guarding. No costovertebral angle tenderness. EXT: Pulses 2+ bilaterally dorsalis pedis and radial. No lower extremity edema appreciated. SKIN: [place], dry, warm. Capillary refill <2sec. Wound noted, approximately 10cm x 12 cm area Rt buttuck extending to Buttock fold with erythema, TTP. NEURO: Alert and oriented x 3. Cranial nerves III-XII are intact. No focal deficits appreciated. EKG: SINUS TACHYCARDIA WITH SHORT [place] INTERVAL WITH OCCASIONAL ATRIAL PREMATURE COMPLEXES NONSPECIFIC T-WAVE ABNORMALITY SIMILAR TO 04/01/18 Electronically Signed On 09-19-2018 21:03:49 EST by Tong Mcnamara A&P: 37 yo F [facility] for unspecified depressive disorder 1. Psych. Plan per Psychiatry. EKG on file. 2. NIDDM. Consistent carbohydrate diet. Hold glipizide as patient was noted to be hypoglycemic this morning at 0643 hrs., 41. Increased to 99 at 0723 hrs. Fingerstick blood sugar before meals at bedtime with sliding scale coverage. 3. Chronic head pain. Continue gabapentin. Continue ibuprofen 400 mg every 6 hours as needed. Avoid Tylenol. Consider pain management if needed. 4. GERD. Continue Protonix 40 mg daily. 5. Iron deficiency. Continue iron supplement. Hemoglobin is noted to be 11.5. 6. Cirrhosis. Continue outpatient follow-up with [facility] in [place]. Continue Aldactone 50 mg by mouth daily. MELD-Na 23 Update ammonia level. Update PT/INR. Update CMP this a.m. 7. SHANIKA. Continue CPAP with home settings. 8. Seizure disorder. Unclear when her last seizure occurred. Bruising is noted to the chin and right chest area however this is documented at the time of her emergency department evaluation 09/19/18 and subsequent transfer to [facility]. Continue Keppra 1500 mg by mouth twice a day. Keppra level is pending. Seizure precautions. Continue outpatient follow-up with neurology. 9 Follow up with PCP on discharge. 10. Substance use. Management per psychiatry. 11. Buttock wound. Wound culture pending. Dry dressing twice a day. Apply Bactroban twice a day. Wound consult pending. Patient currently remains on course of Augmentin 875 mg by mouth twice a day. 12. Diarrhea. Patient is able to provide very little additional history but states she has had loose bowel movements for the past few days. She denies abdominal pain. MAXIMUM TEMPERATURE 99.7. WBC on admission 9.1. Update CBC/CMP. Request UA with reflex culture. Request GI panel. Add Bacid BID. Monitor. 13. Recent pneumonia. The patient states she was treated for pneumonia during recent hospitalization at [facility] in [place]. She was discharged 09/22/18 to finish course of oral Augmentin 875 mg by mouth twice a day as outpatient. She denies cough. MAXIMUM TEMPERATURE as above. WBC on admission as above. Update chest x-ray. Continue Augmentin 875 mg by mouth twice a day. Update CBC/CMP. 14. Hypokalemia. S/P supplement in ED. KCl Supplement 20 mEq by mouth twice a day. Update CMP. Add Mag level. Monitor. 15. Staff member Crystal present throughout exam. Addendum. Reviewed pt with Dr Terry who will follow pt 09/26/18-09/29/18 and monitor labs. Vital Signs Vital Signs Date Time Temp Pulse Resp B/P (MAP) Pulse Ox O2 Delivery O2 Flow Rate FiO2 09/25/18 06:22 99.7 81 16 132/62 (85) Room Air 09/24/18 17:00 96 Laboratory Data Labs 24H Laboratory Tests 2 09/24/18 11:55: Nucleated Red Blood Cells % (auto) 0.9H, Anion Gap 11, Glomerular Filtration Rate > 60.0, Calcium Level 7.7L, Aspartate Amino Transf (AST/SGOT) 100H, Alanine Aminotransferase (ALT/SGPT) 48, Alkaline Phosphatase 102, Total Bilirubin 5.1H, Direct Bilirubin 3.8H, Total Protein 6.7, Albumin 2.0L, Albumin/Globulin Ratio 0.43L, Thyroid Stimulating Hormone (TSH) 2.510, Human Chorionic Gonadotropin, Qual NEGATIVE, Salicylates Level < 1.7L, Acetaminophen Level < 2.0L, Ethyl A lcohol Level 0.044H 09/24/18 12:27: Urine Amphetamines Screen NEGATIVE, Urine Benzodiazepines Screen NEGATIVE, Urine Opiates Screen NEGATIVE, Urine Methadone Screen NEGATIVE, Urine Barbiturates Screen NEGATIVE, Urine Phencyclidine Screen NEGATIVE, Urine Cocaine Metabolite Screen NEGATIVE, Urine Cannabinoids Screen NEGATIVE 09/25/18 06:43: Bedside Glucose (Misc Panel) 41L 09/25/18 07:05: Bedside Glucose (Misc Panel) 52L 09/25/18 07:23: Bedside Glucose (Misc Panel) 99 CBC/BMP Laboratory Tests 09/24/18 11:55 Red Blood Count 3.54 L, Mean Corpuscular Volume 97.5 H, Mean Corpuscular Hemoglobin 32.5, Mean Corpuscular Hemoglobin Concent 33.3, Red Cell Distribution Width 19.4 H Home Medications Scheduled (B Complex) 1 Tab Tab, 1 TAB PO DAILY (Therapeutic Multi Vitamin) 1 Tab Tab, 1 TAB PO DAILY (Certavite Senior/Antioxid) 1 Tab Tab, 1 TAB PO DAILY Amoxicillin/Clavulanate Potas (Amoxicillin/Clavulanate P 875-125 mg) 1 Tab Tab, 1 TAB PO BID X 7 DAYS. Cholecalciferol (Vitamin D3) 50,000 Unit Tab, 50,000 UNIT PO QMONTH TAKES THE OF THE MONTH. Citalopram Hydrobromide (Citalopram Hydrobromide) 20 Mg Tab, 20 MG PO DAILY Ferrous Gluconate (Ferrous Gluconate) 324 Mg Tab, 324 MG PO DAILY Folic Acid (Folic Acid) 1 Mg Tab, 1 MG PO DAILY Gabapentin (Gabapentin) 100 Mg Cap, 100 MG PO TID Glipizide (Glipizide) 5 Mg Tab, 5 MG PO DAILY Levetiracetam (Levetiracetam) 750 Mg Tab, 1,500 MG PO BID Pantoprazole Sodium (Pantoprazole Sodium) 40 Mg Tab, 40 MG PO DAILY Potassium Chloride (Potassium Chloride ER) 20 Meq Tab, 20 MEQ PO BID Spironolactone (Spironolactone) 50 Mg Tab, 50 MG PO DAILY Allergies Coded Allergies: No Known Drug Allergy (Verified Allergy, Unknown, 09/24/18) Lety Magana Sep 25, 2018 10:13
[2018-09-25 10:50] LABS: ALBUMIN 1.8 GM/DL (3.2-5.2); ALT/SGPT 44 U/L (12-78); BILIRUBIN,TOTAL 4.7 MG/DL (0.2-1.0); BLOOD UREA NITROGEN 6 MG/DL (7-18); CALCIUM LEVEL 7.9 MG/DL (8.5-10.1); CARBON DIOXIDE LEVEL 25 MEQ/L (21-32); CHLORIDE LEVEL 101 MEQ/L (98-107); GLOMERULAR FILTRATION RATE > 60.0 (>60); GLUCOSE, FASTING 139 MG/DL (70-100); SODIUM LEVEL 133 MEQ/L (136-145); TOTAL PROTEIN 6.7 GM/DL (6.4-8.2)
--- NOTE | 2018-09-25 11:02 | REP ---
CHEST X-RAY: TWO VIEWS. HISTORY: Recent pneumonia. COMPARISON: Chest x-ray, September 19, 2018. Comparison chest CT study is reviewed from the same date. FINDINGS: There is extensive consolidation again noted throughout much of the right lung. Principally, this involves the right upper lobe, but there is consolidation in the right lower lobe as well. No visible infiltrate is noted on the left. No pleural effusion is seen. Radiographically, the infiltrate is a little more opaque. It is no more extensive. IMPRESSION: Extensive consolidation in the right lung consistent with pneumonia. This is somewhat more opaque or consolidated than on the prior study. Electronically Signed by Lokesh Kim MD 09/25/2018 05:00 P
[2018-09-25 11:08] LABS: INR 1.74; PROTHROMBIN TIME 20.6 SECONDS (12.1-14.4)
[2018-09-25 11:38] VITALS: BP 132/62
[2018-09-25] MEDS: HumaLOG INSULIN (NovoLOG) PER UNIT SC SCH ×3 (11:45→20:37)
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
[2018-09-25 12:28] LABS: MAGNESIUM LEVEL 1.5 MG/DL (1.8-2.4)
[2018-09-25] MEDS ORDERED: POTASSIUM CHLORIDE 10 MEQ SR TABLET PO ONE (13:00)
[2018-09-25] MEDS: MAGNESIUM OXIDE 400 MG TAB (MAG-OX) PO SCH (13:31)
[2018-09-25] MEDS: DIAPER RELIEF PASTE (DESITIN) 60GM TOP SCH ×2 (14:45→20:38)
--- NOTE | 2018-09-25 14:56 | CR ---
ADVANCED WOUND CARE CONSULT VIA TELEMEDICINE: DATE: 09/25/2018 CONSULT REQUESTED BY: EPHRAIM Craft regarding left and right buttocks wounds. HISTORY OF PRESENT ILLNESS: 37-year-old female admitted [facility] the [facility] for depression and a history of previous seizure disorder. The patient has not been taking her medications on a regular basis, is very vague about her recent past history, and is unsure why she has had bruising on her abdomen and chest and wounds involving the buttocks. She cannot recall a fall or any trauma. She has been recently hospitalized at [facility] for pneumonia and has a history of cirrhosis of the liver. The patient does not appear in any acute distress and can verbally communicate although was vague about specific occurrences and cannot give exact details. On the left buttocks area there is a partial-thickness wound measuring 19.0 cm x 8.5 cm with a wound depth of less than 0.1 cm. the wound base shows granulation tissue with areas of superficial epithelialization, there are no deep structures seen and no evidence of necrotic eschar. The wound edges are demarcated and the periwound shows no erythema, maceration or ischemic change. The wound drainage is minimal and serous. On the medial aspect of the right buttocks there is a similar wound measuring 9.5 cm x 4.0 cm with a wound depth of less than 0.1 cm. This wound is partial-thickness. There is no significant drainage noted. Wound edges are demarcated and the periwound shows no erythema, maceration or ischemic change. There is no fluctuation involving either wound. The patient has a history of recent diarrhea, however, these wounds are not consistent with incontinence dermatitis. They do not overlie any bony prominence and therefore do not qualify for a pressure injury. The clinical impression is local trauma producing skin tears consistent with abrasions. These wounds do not have the appearance of incontinent-induced dermatitis. Prior treatment had been dry sterile dressing changed twice a day applying Bactroban twice a day. While hospitalized in [place] she received antibiotic therapy for pneumonia but at present is not on any antibiotic medication. These are partial thickness wounds. The treatment is a hydrocolloid dressing to be applied to right and left buttock wounds. Hydrocolloid dressings can remain in place for 2-3 days or more and then should be changed. There is no indication for dry sterile dressings and there is no indication for Bactroban ointment. There is no indication for oral antibiotic therapy. When the patient's medications have been stabilized and her clinical state has stabilized she can be referred to our clinic for wound care follow-up if indicated. LICHA
[2018-09-25 18:00] VITALS: BP 136/63
[2018-09-25 18:05] VITALS: BP 136/63
[2018-09-25] MEDS: LACTOBACILLUS ACIDOPHILUS CAP (BACID) PO SCH (18:13)
[2018-09-25] MEDS: IBUPROFEN 400 MG TAB PO PRN (20:35)
[2018-09-26 06:16] VITALS: BP 116/62
[2018-09-26] MEDS: HumaLOG INSULIN (NovoLOG) PER UNIT SC SCH ×4 (06:33→21:00)
[2018-09-26 06:53] LABS: HEMATOCRIT 32.9 % (36.0-47.0); HEMOGLOBIN 10.9 g/dl (12.0-15.5); MEAN CORPUSCULAR HEMOGLOBIN 32.8 pg (27.0-33.0); MEAN CORPUSCULAR HGB CONC 33.1 g/dl (32.0-36.5); MEAN CORPUSCULAR VOLUME 99.1 fl (80.0-96.0); PLATELET COUNT, AUTOMATED 138 10^3/uL (150-450); RED BLOOD COUNT 3.32 10^6/uL (4.00-5.40); WHITE BLOOD COUNT 8.4 10^3/uL (4.0-10.0)
[2018-09-26 07:04] LABS: INR 1.77; PROTHROMBIN TIME 20.9 SECONDS (12.1-14.4)
[2018-09-26 07:30] VITALS: BP 116/62
[2018-09-26 07:34] LABS: ALBUMIN 1.8 GM/DL (3.2-5.2); ALT/SGPT 44 U/L (12-78); BILIRUBIN,TOTAL 4.2 MG/DL (0.2-1.0); BLOOD UREA NITROGEN 5 MG/DL (7-18); CALCIUM LEVEL 7.9 MG/DL (8.5-10.1); CARBON DIOXIDE LEVEL 28 MEQ/L (21-32); CHLORIDE LEVEL 108 MEQ/L (98-107); CREATININE FOR GFR 0.86 MG/DL (0.55-1.30); GLOMERULAR FILTRATION RATE > 60.0 (>60); GLUCOSE, FASTING 67 MG/DL (70-100); MAGNESIUM LEVEL 1.7 MG/DL (1.8-2.4); POTASSIUM SERUM 3.8 MEQ/L (3.5-5.1); SODIUM LEVEL 142 MEQ/L (136-145); TOTAL PROTEIN 6.2 GM/DL (6.4-8.2)
[2018-09-26] MEDS: AUGMENTIN 875 MG TAB PO SCH ×2 (09:44→21:16)
[2018-09-26] MEDS: POTASSIUM CHLORIDE 10 MEQ SR TABLET PO SCH ×2 (09:44→21:16)
[2018-09-26] MEDS: levETIRAcetam 250MG TABLET (KEPPRA) PO SCH ×2 (09:44→21:16)
[2018-09-26] MEDS: THIAMINE 100 MG TAB PO SCH ×2 (09:44→21:16)
[2018-09-26] MEDS: FERROUS GLUCONATE 324 MG TAB PO SCH (09:44)
[2018-09-26] MEDS: SPIRONOLACTONE 50 MG TAB PO SCH (09:45)
[2018-09-26] MEDS: MULTIVITAMINS/MINERALS THERAP 1 TAB PO SCH (09:45)
[2018-09-26] MEDS: LACTOBACILLUS ACIDOPHILUS CAP (BACID) PO SCH ×2 (09:45→18:00)
[2018-09-26] MEDS: GABAPENTIN 100 MG CAP PO SCH ×3 (09:45→21:15)
[2018-09-26] MEDS: FOLIC ACID 1 MG TAB PO SCH (09:45)
[2018-09-26] MEDS: MAGNESIUM OXIDE 400 MG TAB (MAG-OX) PO SCH (09:45)
[2018-09-26] MEDS: PANTOPRAZOLE 40MG TAB (PROTONIX) PO SCH (09:45)
[2018-09-26] MEDS: CitaloPRAM (CeleXA) 20 MG TAB PO SCH (09:45)
[2018-09-26] MEDS: DIAPER RELIEF PASTE (DESITIN) 60GM TOP SCH ×2 (09:45→21:00)
--- NOTE | 2018-09-26 10:11 | MHIPNPDOC ---
[facility] Progress Note Progress Note DATE OF SERVICE: 09/26/18 HISTORY: Patient is a 37 -year-old , female, with a history of depression d/c [facility] 03/2018 who was admitted after telling her CM that She was suicidal with plan to drink herself to due to family stressors. In the ED pt reported feeling tired of being a disappointment to her family and depression over the "not wanting to see me" over the holidays. Pt stated she was recently treated at [facility] for Pneumonia and when d/c had a seizure (has seizure d/o on keppra) waiting for ride home. Pt admitted to drinking 2 mini bottles of wine night prior admission and BAL in ED 0.044. Nursing staff in ED noted ecchymosis right chest/chin/right shoulder and rash on buttocks. Pt seen today and states she tired of her family making her feel like a disappointment b/c they don't want to be around her if she's been drinking. Pt states she had been doing well but "slipped up" and relapsed right before [place]. States she was drinking 1-2 days/wk roughly 1 liter of wine each day ("I have to finish the bottle"). States she knows her family wants her to get the help for her alcohol use and encouraged her to go to meeting that she admits she hasn't been to one yet b/c "I feel like a hypocrite b/c I'm still drinking." States Celexa is beneficial for her mood but it's her drinking that makes her depressed. Denies alcohol withdrawal symptoms here. Denies current si/hi, hallucinations, delusions. Feels safe here. VITAL SIGNS: See below. NEW TEST RESULTS: See below. CURRENT MEDICATIONS: See below. MENTAL STATUS EXAMINATION: General Appearance: disheveled, appears stated age, hospital scrubs/clothing Build: overweight Demeanor: average Activity: average, anxious Behavior: cooperative Speech: clear, spontaneous, normal volume, reg/rate,rhythm,volume Mood: less depressed, anxious Mood "better" Affect: improved range, congruent, anxious Thought Process: logical/linear, depressed, other (self blame and self depricating) Thought Content (Delusions): none reported, denies SI, HI, AVH Thought Content (Other): none reported Thought Content (Aggressive): none reported Perception (Hallucinations): none reported Perception (Other): none reported Cognition (Impairment of): none reported Cognition(Intelligence Est.): average Oriented: Awake, Alert, Oriented times three Insight: fair Judgment: Fair Psychosis: Denies DIAGNOSES: Major Depressive D/O recurrent, moderate, w/o psychosis Alcohol use d/o TBI Hx ASSESSMENT:Pt seen and states that her mood is better and denies alcohol withdrawal symptoms. Per treatment team, pt's outpatient CM wants pt to go to inpatient substance abuse treatment as she has been unsuccessful with outpatient substance abuse treatment. Spoke with pt, that I, treatment team, and CM recommend she be referred to inpatient substance abuse treatment directly after discharged from [facility] as she is more likely to go with direct admission. Pt hesitant but finally agreed to go admitted it would be go for her and her relationship with her family. States she's being social on the milieu which is beneficial. States she slept well last night. Feels she is tolerating her medications and they're beneficial. She is attending groups and finding them helpful. She denies insomnia, SI/HI, hallucinations, delusionsc alcohol withdrawal symptoms. Pt feels safe here. MANAGEMENT PLAN: continue current plan. Refer to inpatient substance abuse treatment. Medications: [facility] protocol keppra 1500mg bid celexa 20mg daily TIME SPENT: 30 minutes. Vital Signs Vital Signs Date Time Temp Pulse Resp B/P (MAP) Pulse Ox O2 Delivery O2 Flow Rate FiO2 09/26/18 06:16 98.1 82 14 116/62 (80) Room Air 09/24/18 17:00 96 Laboratory Data 24H Labs Laboratory Tests 2 09/25/18 10:24: Prothrombin Time 20.6H, Prothromb Time International Ratio 1.74, Ammonia 46H 09/25/18 10:42: Urine Color YELLOW, Urine Appearance CLEAR, Urine pH 7.0, Urine Specific [place] 1.003, Urine Protein NEGATIVE, Urine Glucose (UA) NEGATIVE, Urine Ketones NEGATIVE, Urine Blood 1+H, Urine Nitrite NEGATIVE, Urine Bilirubin NEGATIVE, U rine Urobilinogen 2.0H, Urine Leukocyte Esterase NEGATIVE, Urine WBC (Auto) 1, Urine RBC (Auto) 2, Urine Hyaline Casts (Auto) 0, Urine Bacteria (Auto) NEGATIVE, Urine Squamous Epithelial Cells 2, Urine Sperm (Auto) 09/25/18 11:43: Bedside Glucose (Misc Panel) 86 09/25/18 17:16: Bedside Glucose (Misc Panel) 89 09/25/18 20:34: Bedside Glucose (Misc Panel) 115H 09/26/18 06:28: Bedside Glucose (Misc Panel) 59L 09/26/18 06:35: Nucleated Red Blood Cells % (auto) 0.4H, Prothrombin Time 20.9H, Prothromb Time International Ratio 1.77, Anion Gap 6L, Glomerular Filtration Rate > 60.0, Estimated Mean Plasma Glucose 68, Hemoglobin A1c 4.0, Blood Urea Nitrogen 5L, Creatinine 0.86, Sodium Level 142#, Potassium Level 3.8#, Chloride Level 108H, Carbon Dioxide Level 28, Calcium Level 7.9L, Aspartate Amino Transf (AST/SGOT) 82H, Alanine Aminotransferase (ALT/SGPT) 44, Alkaline Phosphatase 149H, Total Bilirubin 4.2H, Total Protein 6.2L, Albumin 1.8L, Magnesium Level 1.7L, Ammonia 29, Albumin/Globulin Ratio 0.41L CBC/BMP Laboratory Tests 09/26/18 06:35 Red Blood Count 3.32 L, Mean Corpuscular Volume 99.1 H, Mean Corpuscular Hemoglobin 32.8, Mean Corpuscular Hemoglobin Concent 33.1, Red Cell Distribution Width 20.1 H, Calcium Level 7.9 L, Aspartate Amino Transf (AST/SGOT) 82 H, José Manuel ne Aminotransferase (ALT/SGPT) 44, Alkaline Phosphatase 149 H, Total Bilirubin 4.2 H, Total Protein 6.2 L, Albumin 1.8 L Current Medications Current Medications Al Hydrox/Mg Hydrox/Simethicone (Mylanta) 30 ml Q4HP PRN PO HEARTBURN/INDIGESTION; Start 09/24/18 at 14:30 Amoxicillin/ Clavulanate Potassium (Augmentin) 875 mg BID PO Last administered on 09/26/18at 09:44; Start 09/24/18 at 21:00; Stop 09/29/18 at 12:00 Citalopram Hydrobromide (CeleXA) 20 mg DAILY PO Last administered on 09/26/18at 09:45; Start 09/25/18 at 09:00 Cod Liver Oil/ Zinc Oxide (Desitin) apply to anal area BID TOP Last administered on 09/26/18at 09:45; Start 09/25/18 at 09:00 Dextrose (Dextrose 50%) 25 ml ASDIRECTED PRN IV SEE LABEL COMMENTS; Start 09/25/18 at 09:45 Ferrous Gluconate (Fergon) 324 mg DAILY PO Last administered on 09/26/18at 09:44; Start 09/25/18 at 09:00 Folic Acid (Folic Acid) 1 mg DAILY PO Last administered on 09/26/18at 09:45; Start 09/24/18 at 09:00 Gabapentin (Neurontin) 100 mg TID PO Last administered on 09/26/18at 09:45; Start 09/24/18 at 16:00 Glipizide (Glucotrol) 5 mg DAILY@0730 PO ; Start 09/25/18 at 07:30; Stop 09/25/18 at 07:59; Status DC Glucagon (Glucagon) 1 mg ASDIRECTED PRN SC SEE LABEL COMMENTS; Start 09/25/18 at 09:45 Glucose (Glucose) 16 GM ASDIRECTED PRN PO SEE LABEL COMMENTS; Start 09/25/18 at 09:45 Home Med (Med Rec Complete!) ASDIRECTED XX ; Start 09/24/18 at 15:30; Stop 09/24/18 at 15:37; Status DC Ibuprofen (Advil) 400 mg Q6HP PRN PO PAIN Last administered on 09/25/18at 20:35; Start 09/24/18 at 14:30 Insulin Human Lispro (HumaLOG INSULIN) See Protocol Table AC SC ; Start 09/25/18 at 12:00 Insulin Human Lispro (HumaLOG INSULIN) See Protocol Table QHS SC ; Start 09/25/18 at 21:00 Lactobacillus Acidophilus (Bacid) 1 ea BIDWM PO Last administered on 09/26/18at 09:45; Start 09/25/18 at 18:00 Levetiracetam (Keppra) 1,500 mg BID PO Last administered on 09/26/18at 09:44; Start 09/24/18 at 21:00 Loperamide HCl (Imodium) 2 mg ASDIRECTED PRN PO DIARRHEA; Start 09/26/18 at 09:45 Lorazepam (Ativan) 2 mg ASDIRECTED PRN PO SEE PROTOCOL; Start 09/24/18 at 14:30 Magnesium Hydroxide (Milk Of Magnesia) 30 ml DAILYPRN PRN PO CONSTIPATION; Start 09/24/18 at 14:30 Magnesium Oxide (Mag-Ox) 400 mg DAILY PO Last administered on 09/26/18 09:45; Start 09/25/18 at 13:00 Multivitamins (Theragram-M) 1 tab DAILY PO Last administered on 09/26/18 09:45; Start 09/24/18 at 09:00 Mupirocin (Bactroban 2% Ointment) APPLY TO BUTTOCKS BID TOP Last administered on 09/25/18 10:58; Start 09/25/18 at 09:00; Stop 09/25/18 at 13:06; Status DC Pantoprazole Sodium (Protonix) 40 mg DAILY PO Last administered on 09/26/18 09:45; Start 09/25/18 at 09:00 Potassium Chloride (Micro-K Extencaps) 20 meq BID PO Last administered on 09/26/18 09:44; Start 09/24/18 at 21:00 Spironolactone (Aldactone) 50 mg DAILY PO Last administered on 09/26/18 09:45; Start 09/25/18 at 09:00 Thiamine HCl (Thiamine HCl) 100 mg BID PO Last administered on 09/26/18 09:44; Start 09/24/18 at 21:00; Stop 09/26/18 at 21:01 Allergies Coded Allergies: No Known Drug Allergy (Verified Allergy, Unknown, 09/24/18) PHOEBE ARROYO DO Sep 26, 2018 10:11 am
[2018-09-26] MEDS ORDERED: CHLORHEXIDINE GLUCONATE 0.12 % 15ML UDC (PERIDEX ORAL RINSE) MT SCH (16:00)
[2018-09-26] MEDS: NYSTATIN 500,000 U/5 ML SUSP UDC SS SCH ×2 (16:40→21:16)
[2018-09-26] MEDS: predniSONE 20 MG TAB PO SCH (16:42)
[2018-09-26 17:09] VITALS: BP 146/74
[2018-09-26] MEDS: LOPERAMIDE 2 MG CAP PO PRN (17:39)
[2018-09-26 18:00] VITALS: BP 146/74
--- NOTE | 2018-09-26 20:07 | IPN ---
DATE: 09/26/2018 The patient is seen and examined. Reported oral sores. No other complaints. Denies any chest pain, pressure or discomfort. Denies any fevers or chills. Counseling for alcoholism provided. VITAL SIGNS: Temperature 98.1, pulse 82, respirations 14, blood pressure 116/82, pulse oximetry 96% on room air. LABORATORY DATA: WBC 8.4, hemoglobin and hematocrit 10.9 and 32.9, platelets 138. Chemistry: Sodium 142, potassium 3.8, chloride 108, bicarbonate 28, BUN 5, creatinine 0.86, ANC 4. PHYSICAL EXAMINATION: GENERAL: The patient is obese, alert, comfortable and in no acute distress. HEENT: Normocephalic, atraumatic. PULMONARY: Bilaterally clear. CARDIAC: Regular. S1, S2. ABDOMEN: Soft, nontender. Positive bowel sounds. EXTREMITIES: No clubbing, cyanosis or edema. ASSESSMENT AND PLAN: This is a 37-year-old patient with underlying medical history of depression, substance abuse, alcohol abuse, history of suicide ideation, seizure disorder, gastroesophageal reflux disease (GERD), iron deficiency anemia, hypertension, obstructive sleep apnea on continuous positive airway pressure (CPAP) at night, obesity, cirrhosis, follows with [facility], admitted to inpatient mental health for depressive disorder. Medicine consulted for medical management. 1. Depression, anxiety, substance abuse. Management as per psychiatry. Continue current medications. 2. Diabetes. Non insulin dependent. Holding oral medications due to persistent hypoglycemia. Follow fingersticks. Insulin as needed. 3. Obesity complicating care. 4. Chronic headache. Continue current medications. Avoid Tylenol. Pain management consultation if worsens. 5. Gastroesophageal reflux disease (GERD). Continue proton pump inhibitor. 6. Iron deficiency anemia. Supplement ordered. Continue to follow hemoglobin and hematocrit. 7. Cirrhosis with alcoholic hepatitis. Model for end-stage liver disease (MELD) score of 23 and discriminate function of 41. The patient will benefit from steroids. Prednisone started. Continue aldactone. Followup with [facility] in [place]. Ammonia level appreciated. Followup comprehensive metabolic panel and INR. Counseling provided for alcohol cessation. Monitor for withdrawal. 8. Obstructive sleep apnea. Encourage continuous positive airway pressure (CPAP) at night. 9. Seizure disorder. Continue current medications. We will monitor. 10. Substance abuse. Management as per psychiatry. 11. Bactroban has been ordered. Wound care consultation. Continue Augmentin. 12. Diarrhea. The patient is a poor historian. We will monitor clinically. 13. Recent pneumonia. The patient's physical examination is benign. We will monitor. 14. Hypokalemia. We will monitor electrolytes and supplement as needed. 15. Deep vein thrombosis (DVT) prophylaxis. Early ambulation. DISPOSITION: As per psychiatrist.
[2018-09-26] MEDS: IBUPROFEN 400 MG TAB PO PRN (23:18)
[2018-09-27] MEDS: LOPERAMIDE 2 MG CAP PO PRN ×2 (05:00→08:49)
[2018-09-27 06:34] VITALS: BP 126/60
[2018-09-27] MEDS: HumaLOG INSULIN (NovoLOG) PER UNIT SC SCH ×4 (06:42→20:40)
[2018-09-27 07:18] LABS: HEMATOCRIT 31.1 % (36.0-47.0); HEMOGLOBIN 10.2 g/dl (12.0-15.5); MEAN CORPUSCULAR HEMOGLOBIN 32.7 pg (27.0-33.0); MEAN CORPUSCULAR HGB CONC 32.8 g/dl (32.0-36.5); MEAN CORPUSCULAR VOLUME 99.7 fl (80.0-96.0); PLATELET COUNT, AUTOMATED 121 10^3/uL (150-450); RED BLOOD COUNT 3.12 10^6/uL (4.00-5.40)
[2018-09-27 07:44] LABS: ALBUMIN 1.8 GM/DL (3.2-5.2); ALT/SGPT 41 U/L (12-78); BILIRUBIN,TOTAL 3.5 MG/DL (0.2-1.0); BLOOD UREA NITROGEN 7 MG/DL (7-18); CARBON DIOXIDE LEVEL 26 MEQ/L (21-32); CHLORIDE LEVEL 107 MEQ/L (98-107); CREATININE FOR GFR 0.81 MG/DL (0.55-1.30); GLOMERULAR FILTRATION RATE > 60.0 (>60); GLUCOSE, FASTING 129 MG/DL (70-100); MAGNESIUM LEVEL 1.8 MG/DL (1.8-2.4); POTASSIUM SERUM 4.1 MEQ/L (3.5-5.1); SODIUM LEVEL 140 MEQ/L (136-145); TOTAL PROTEIN 6.2 GM/DL (6.4-8.2)
[2018-09-27] MEDS: GABAPENTIN 100 MG CAP PO SCH ×3 (08:43→20:38)
[2018-09-27] MEDS: PANTOPRAZOLE 40MG TAB (PROTONIX) PO SCH (08:44)
[2018-09-27] MEDS: NYSTATIN 500,000 U/5 ML SUSP UDC SS SCH ×3 (08:44→20:38)
[2018-09-27] MEDS: FOLIC ACID 1 MG TAB PO SCH (08:44)
[2018-09-27] MEDS: LACTOBACILLUS ACIDOPHILUS CAP (BACID) PO SCH ×2 (08:44→17:17)
[2018-09-27] MEDS: MULTIVITAMINS/MINERALS THERAP 1 TAB PO SCH (08:44)
[2018-09-27] MEDS: POTASSIUM CHLORIDE 10 MEQ SR TABLET PO SCH ×2 (08:44→20:38)
[2018-09-27] MEDS: MAGNESIUM OXIDE 400 MG TAB (MAG-OX) PO SCH (08:44)
[2018-09-27] MEDS: AUGMENTIN 875 MG TAB PO SCH ×2 (08:44→20:38)
[2018-09-27] MEDS: CitaloPRAM (CeleXA) 20 MG TAB PO SCH (08:44)
[2018-09-27] MEDS: FERROUS GLUCONATE 324 MG TAB PO SCH (08:44)
[2018-09-27] MEDS: predniSONE 20 MG TAB PO SCH (08:44)
[2018-09-27] MEDS: SPIRONOLACTONE 50 MG TAB PO SCH (08:44)
[2018-09-27] MEDS: DIAPER RELIEF PASTE (DESITIN) 60GM TOP SCH ×2 (08:45→20:41)
[2018-09-27] MEDS: levETIRAcetam 250MG TABLET (KEPPRA) PO SCH ×2 (08:45→20:38)
--- NOTE | 2018-09-27 09:12 | MHIPNPDOC ---
[facility] Progress Note Progress Note DATE OF SERVICE: 09/27/18 HISTORY: Patient is a 37 -year-old , female, with a history of depression d/c [facility] who was admitted after telling her CM that She was suicidal with plan to drink herself to due to family stressors. In the ED pt reported feeling tired of being a disappointment to her family and depression over the "not wanting to see me" over the holidays. Pt stated she was recently treated at [facility] for Pneumonia and when d/c had a seizure (has seizure d/o on keppra) waiting for ride home. Pt admitted to drinking 2 mini bottles of wine night prior admission and BAL in ED 0.044. Nursing staff in ED noted ecchymosis right chest/chin/right shoulder and rash on buttocks. Pt seen today and states she tired of her family making her feel like a disappointment b/c they don't want to be around her if she's been drinking. Pt states she had been doing well but "slipped up" and relapsed right before [place]. States she was drinking 1-2 days/wk roughly 1 liter of wine each day ("I have to finish the bottle"). States she knows her family wants her to get the help for her alcohol use and encouraged her to go to meeting that she admits she hasn't been to one yet b/c "I feel like a hypocrite b/c I'm still drinking." States Celexa is beneficial for her mood but it's her drinking that makes her depressed. Denies alcohol withdrawal symptoms here. Denies current si/hi, hallucinations, delusions. Feels safe here. VITAL SIGNS: See below. NEW TEST RESULTS: See below. CONSULTS: medicine Iron deficiency anemia. Supplement ordered. Continue to follow hemoglobin and hematocrit. Cirrhosis with alcoholic hepatitis. Model for end-stage liver disease (MELD) score of 23 and discriminate function of 41. The patient will benefit from steroids. Prednisone started. Continue aldactone. Followup with [facility] in [place]. Ammonia level appreciated. Followup comprehensive metabolic panel and INR. Counseling provided for alcohol cessation. Monitor for withdrawal. CURRENT MEDICATIONS: See below. MENTAL STATUS EXAMINATION: General Appearance: disheveled, appears stated age, hospital scrubs/clothing Build: overweight Demeanor: average, tearful regarding fear of dying liver failure if continues to use alcohol Activity: average, anxious Behavior: cooperative Speech: clear, spontaneous, normal volume, reg/rate,rhythm,volume Mood: depressed, anxious Mood "ok" Affect: improved range, congruent, anxious regarding inpatient rehab Thought Process: logical/linear, depressed, other (self blame and self doubt regarding going to rehab) Thought Content (Delusions): none reported, denies SI, HI, AVH Thought Content (Other): none reported Thought Content (Aggressive): none reported Perception (Hallucinations): none reported Perception (Other): none reported Cognition (Impairment of): none reported Cognition(Intelligence Est.): average Oriented: Awake, Alert, Oriented times three Insight: fair Judgment: Fair Psychosis: Denies DIAGNOSES: Major Depressive D/O recurrent, moderate, 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 P at first admitting that she was anxious and hesitant regarding going to inpatient rehab as states has been before and it didn't work. Gave pt reassurance and encouragement that she could go and that this time hopeful she will find it beneficial for her to stay sober. Discussed liver failure diagnosis with pt and the fact that she has to stay sober for her health and mortality. Pt tearful and admits she doesn't want to of liver failure as she has seen someone of it in the past. Pt admitted she felt better talking about it and continues to be agreeable to going to inpatient rehab. Denies alcohol withdrawal symptoms. States she's being social on the milieu which is beneficial. States she slept well last night. Feels she is tolerating her medications and they're beneficial. She is attending groups and finding them helpful. She denies insomnia, SI/HI, hallucinations, delusions, alcohol withdrawal symptoms. Pt feels safe here. MANAGEMENT PLAN: continue current plan. Refer to inpatient substance abuse treatment. Medications: [facility] protocol keppra 1500mg bid celexa 20mg daily TIME SPENT: 30 minutes. Vital Signs Vital Signs Date Time Temp Pulse Resp B/P (MAP) Pulse Ox O2 Delivery O2 Flow Rate FiO2 09/27/18 06:34 98.0 84 14 126/60 (82) 09/26/18 06:16 Room Air 09/24/18 17:00 96 Laboratory Data 24H Labs Laboratory Tests 2 09/26/18 12:01: Bedside Glucose (Misc Panel) 99 09/26/18 17:32: Bedside Glucose (Misc Panel) 97 09/26/18 21:10: Bedside Glucose (Misc Panel) 204H 09/27/18 04:57: Bedside Glucose (Misc Panel) 154H 09/27/18 06:47: Nucleated Red Blood Cells % (auto) 0.0, Anion Gap 7L, Glomerular Filtration Rate > 60.0, Blood Urea Nitrogen 7, Creatinine 0.81, Sodium Level 140, Potassium Level 4.1, Chloride Level 107, Carbon Dioxide Level 26, Calcium Level 8.0L, Aspartate Amino Transf (AST/SGOT) 64H, Alanine Aminotransferase (ALT/SGPT) 41, Alkaline Phosphatase 180H, Total Bilirubin 3.5H, Total Protein 6.2L, Albumin 1.8L, Magnesium Level 1.8, Albumin/Globulin Ratio 0.41L CBC/BMP Laboratory Tests 09/27/18 06:47 Red Blood Count 3.12 L, Mean Corpuscular Volume 99.7 H, Mean Corpuscular Hemoglobin 32.7, Mean Corpuscular Hemoglobin Concent 32.8, Red Cell Distribution Width 19.9 H, Calcium Level 8.0 L, Aspartate Amino Transf (AST/SGOT) 64 H, Alanine Aminotransferase (ALT/SGPT) 41, Alkaline Phosphatase 180 H, Total Bilirubin 3.5 H, Total Protein 6.2 L, Albumin 1.8 L Current Medications Current Medications Al Hydrox/Mg Hydrox/Simethicone (Mylanta) 30 ml Q4HP PRN PO HEARTBURN/INDIGESTION; Start 09/24/18 at 14:30 Amoxicillin/ Clavulanate Potassium (Augmentin) 875 mg BID PO Last administered on 09/26/18at 21:16; Start 09/24/18 at 21:00; Stop 09/29/18 at 12:00 Chlorhexidine Gluconate (Peridex Oral Rinse) 15 ml TID MT ; Start 09/26/18 at 16:00; Status Cancel Citalopram Hydrobromide (CeleXA) 20 mg DAILY PO Last administered on 09/26/18at 09:45; Start 09/25/18 at 09:00 Cod Liver Oil/ Zinc Oxide (Desitin) apply to anal area BID TOP Last administered on 09/26/18at 09:45; Start 09/25/18 at 09:00 Dextrose (Dextrose 50%) 25 ml ASDIRECTED PRN IV SEE LABEL COMMENTS; Start 09/25/18 at 09:45 Ferrous Gluconate (Fergon) 324 mg DAILY PO Last administered on 09/26/18at 09:44; Start 09/25/18 at 09:00 Folic Acid (Folic Acid) 1 mg DAILY PO Last administered on 09/26/18at 09:45; Start 09/24/18 at 09:00 Gabapentin (Neurontin) 100 mg TID PO Last administered on 09/26/18 21:15; Start 09/24/18 at 16:00 Glipizide (Glucotrol) 5 mg DAILY@0730 PO ; Start 09/25/18 at 07:30; Stop 09/25/18 at 07:59; Status DC Glucagon (Glucagon) 1 mg ASDIRECTED PRN SC SEE LABEL COMMENTS; Start 09/25/18 at 09:45 Glucose (Glucose) 16 GM ASDIRECTED PRN PO SEE LABEL COMMENTS; Start 09/25/18 at 09:45 Home Med (Med Rec Complete!) ASDIRECTED XX ; Start 09/24/18 at 15:30; Stop 09/24/18 at 15:37; Status DC Ibuprofen (Advil) 400 mg Q6HP PRN PO PAIN Last administered on 09/26/18at 23:18; Start 09/24/18 at 14:30 Insulin Human Lispro (HumaLOG INSULIN) See Protocol Table AC SC Last administered on 09/27/18at 06:42; Start 09/25/18 at 12:00 Insulin Human Lispro (HumaLOG INSULIN) See Protocol Table QHS SC ; Start 09/25/18 at 21:00 Lactobacillus Acidophilus (Bacid) 1 ea BIDWM PO Last administered on 09/26/18 18:00; Start 09/25/18 at 18:00 Levetiracetam (Keppra) 1,500 mg BID PO Last administered on 09/26/18 21:16; Start 09/24/18 at 21:00 Loperamide HCl (Imodium) 2 mg ASDIRECTED PRN PO DIARRHEA Last administered on 1/5/19at 05:00; Start 09/26/18 at 09:45 Lorazepam (Ativan) 2 mg ASDIRECTED PRN PO SEE PROTOCOL; Start 09/24/18 at 14:30; Status Cancel Magnesium Hydroxide (Milk Of Magnesia) 30 ml DAILYPRN PRN PO CONSTIPATION; Start 09/24/18 at 14:30 Magnesium Oxide (Mag-Ox) 400 mg DAILY PO Last administered on 09/26/18 09:45; Start 09/25/18 at 13:00 Multivitamins (Theragram-M) 1 tab DAILY PO Last administered on 09/26/18at 09:45; Start 09/24/18 at 09:00 Mupirocin (Bactroban 2% Ointment) APPLY TO BUTTOCKS BID TOP Last administered on 09/25/18 10:58; Start 09/25/18 at 09:00; Stop 09/25/18 at 13:06; Status DC Nystatin (Mycostatin) 5 ml TID SS Last administered on 09/26/18 21:16; Start 09/26/18 at 16:00 Pantoprazole Sodium (Protonix) 40 mg DAILY PO Last administered on 09/26/18 09:45; Start 09/25/18 at 09:00 Potassium Chloride (Micro-K Extencaps) 20 meq BID PO Last administered on 09/26/18 21:16; Start 09/24/18 at 21:00 Prednisone (Deltasone) 40 mg DAILY PO Last administered on 09/26/18 16:42; Start 09/26/18 at 09:00 Spironolactone (Aldactone) 50 mg DAILY PO Last administered on 09/26/18at 09:45; Start 09/25/18 at 09:00 Thiamine HCl (Thiamine HCl) 100 mg BID PO Last administered on 09/26/18 21:16; Start 09/24/18 at 21:00; Stop 09/27/18 at 04:14; Status DC Allergies Coded Allergies: No Known Drug Allergy (Verified Allergy, Unknown, 09/24/18) PHOEBE ARROYO DO Sep 27, 2018 9:12 am
[2018-09-27] MEDS ORDERED: traZODone 50 MG TAB PO PRN (15:00)
--- NOTE | 2018-09-27 16:10 | IPNPDOC ---
Text Note Date of Service The patient was seen on 09/27/18. NOTE The patient is seen and examined. No other complaints. Denies any chest pain, pressure or discomfort. Denies any fevers or chills. PHYSICAL EXAMINATION: GENERAL: The patient is obese, alert, comfortable and in no acute distress. HEENT: Normocephalic, atraumatic. PULMONARY: Bilaterally clear. CARDIAC: Regular. S1, S2. ABDOMEN: Soft, nontender. Positive bowel sounds. EXTREMITIES: No clubbing, cyanosis or edema. SKIN: buttocks stage 1 ulcer. stable ASSESSMENT AND PLAN: This is a 37-year-old patient with underlying medical history of depression, substance abuse, alcohol abuse, history of suicide ideation, seizure disorder, gastroesophageal reflux disease (GERD), iron deficiency anemia, hypertension, obstructive sleep apnea on continuous positive airway pressure (CPAP) at night, obesity, cirrhosis, follows with [facility], admitted to inpatient mental health for depressive disorder. Medicine consulted for medical management. 1. Depression, anxiety, substance abuse. Management as per psychiatry. Continue current medications. 2. Diabetes. Non insulin dependent. Holding oral medications due to persistent hypoglycemia. Follow fingersticks. Insulin via protocol 3. Obesity complicating care. 4. Chronic headache. Continue current medications. Avoid Tylenol. Pain management consultation if worsens. 5. Gastroesophageal reflux disease (GERD). Continue proton pump inhibitor. 6. Iron deficiency anemia. Supplement ordered. Continue to follow hemoglobin and hematocrit. 7. Cirrhosis with alcoholic hepatitis. Model for end-stage liver disease (MELD) score of 23 and discriminate function of 41. The patient will benefit from steroids. Prednisone started 28 days course, taper over the last 7 days of course. Continue aldactone. Followup with [facility] in [place]. Ammonia level appreciated. Followup comprehensive metabolic panel and INR. Counseling provided for alcohol cessation. Monitor for withdrawal. 8. Obstructive sleep apnea. Encourage continuous positive airway pressure (CPAP) at night. 9. Seizure disorder. Continue current medications. We will monitor. 10. Substance abuse. Management as per psychiatry. 11. buttock's wound Bactroban has been ordered. Wound care consultation. Continue Augmentin. 12. Diarrhea. The patient is a poor historian. We will monitor clinically. Gi panel 13. Recent pneumonia. The patient's physical examination is benign. We will monitor. 14. Hypokalemia. We will monitor electrolytes and supplement as needed. 15. Deep vein thrombosis (DVT) prophylaxis. Early ambulation. DISPOSITION: As per psychiatrist. VS,Kirbye, I+O VS, Kirbye, I+O Laboratory Tests 09/27/18 06:47 Red Blood Count 3.12 L, Mean Corpuscular Volume 99.7 H, Mean Corpuscular Hemoglobin 32.7, Mean Corpuscular Hemoglobin Concent 32.8, Red Cell Distribution Width 19.9 H, Calcium Level 8.0 L, Aspartate Amino Transf (AST/SGOT) 64 H, Alanine Aminotransferase (ALT/SGPT) 41, Alkaline Phosphatase 180 H, Total Bilirubin 3.5 H, Total Protein 6.2 L, Albumin 1.8 L Vital Signs Date Time Temp Pulse Resp B/P (MAP) Pulse Ox O2 Delivery O2 Flow Rate FiO2 09/27/18 06:34 98.0 84 14 126/60 (82) 09/26/18 06:16 Room Air 09/24/18 17:00 96 DANYELL ARMIJO MD Sep 27, 2018 16:10
[2018-09-27 18:00] VITALS: BP 138/62
[2018-09-27] MEDS: IPRATROPIUM 0.5MG/ALBUTEROL 2.5MG INH SOL UD 3ML (DUONEB)(J7620) NEB SCH (20:00)
[2018-09-27] MEDS: guaiFENesin ER 600 MG TAB PO SCH (21:00)
[2018-09-28 06:43] VITALS: BP 120/59
[2018-09-28 07:01] LABS: HEMOGLOBIN 10.5 g/dl (12.0-15.5); MEAN CORPUSCULAR HEMOGLOBIN 33.3 pg (27.0-33.0); MEAN CORPUSCULAR HGB CONC 32.8 g/dl (32.0-36.5); MEAN CORPUSCULAR VOLUME 101.6 fl (80.0-96.0); PLATELET COUNT, AUTOMATED 130 10^3/uL (150-450); RED BLOOD COUNT 3.15 10^6/uL (4.00-5.40); WHITE BLOOD COUNT 9.5 10^3/uL (4.0-10.0)
[2018-09-28] MEDS: HumaLOG INSULIN (NovoLOG) PER UNIT SC SCH ×4 (07:04→21:00)
[2018-09-28 07:13] LABS: INR 1.66; PROTHROMBIN TIME 19.9 SECONDS (12.1-14.4)
[2018-09-28 07:27] LABS: ALBUMIN 1.9 GM/DL (3.2-5.2); ALT/SGPT 40 U/L (12-78); BILIRUBIN,TOTAL 4.2 MG/DL (0.2-1.0); BLOOD UREA NITROGEN 8 MG/DL (7-18); CALCIUM LEVEL 8.4 MG/DL (8.5-10.1); CARBON DIOXIDE LEVEL 26 MEQ/L (21-32); CHLORIDE LEVEL 110 MEQ/L (98-107); GLOMERULAR FILTRATION RATE > 60.0 (>60); GLUCOSE, FASTING 75 MG/DL (70-100); MAGNESIUM LEVEL 1.6 MG/DL (1.8-2.4); POTASSIUM SERUM 4.3 MEQ/L (3.5-5.1); SODIUM LEVEL 143 MEQ/L (136-145); TOTAL PROTEIN 6.5 GM/DL (6.4-8.2)
[2018-09-28] MEDS: IPRATROPIUM 0.5MG/ALBUTEROL 2.5MG INH SOL UD 3ML (DUONEB)(J7620) NEB SCH ×4 (08:00→20:00)
[2018-09-28] MEDS: LACTOBACILLUS ACIDOPHILUS CAP (BACID) PO SCH ×2 (08:33→17:05)
[2018-09-28] MEDS: NYSTATIN 500,000 U/5 ML SUSP UDC SS SCH ×3 (08:33→21:11)
[2018-09-28] MEDS: SPIRONOLACTONE 50 MG TAB PO SCH (08:33)
[2018-09-28] MEDS: MULTIVITAMINS/MINERALS THERAP 1 TAB PO SCH (08:33)
[2018-09-28] MEDS: predniSONE 20 MG TAB PO SCH (08:33)
[2018-09-28] MEDS: FOLIC ACID 1 MG TAB PO SCH (08:33)
[2018-09-28] MEDS: PANTOPRAZOLE 40MG TAB (PROTONIX) PO SCH (08:33)
[2018-09-28] MEDS: DIAPER RELIEF PASTE (DESITIN) 60GM TOP SCH ×2 (08:33→21:00)
[2018-09-28] MEDS: FERROUS GLUCONATE 324 MG TAB PO SCH (08:34)
[2018-09-28] MEDS: GABAPENTIN 100 MG CAP PO SCH ×3 (08:34→21:11)
[2018-09-28] MEDS: LOPERAMIDE 2 MG CAP PO PRN (08:34)
[2018-09-28] MEDS: guaiFENesin ER 600 MG TAB PO SCH ×2 (08:34→21:11)
[2018-09-28] MEDS: AUGMENTIN 875 MG TAB PO SCH ×2 (08:34→21:10)
[2018-09-28] MEDS: POTASSIUM CHLORIDE 10 MEQ SR TABLET PO SCH ×2 (08:34→21:13)
[2018-09-28] MEDS: MAGNESIUM OXIDE 400 MG TAB (MAG-OX) PO SCH ×2 (08:34→21:11)
[2018-09-28] MEDS: levETIRAcetam 250MG TABLET (KEPPRA) PO SCH ×2 (08:34→21:11)
[2018-09-28] MEDS: CitaloPRAM (CeleXA) 20 MG TAB PO SCH (08:34)
--- NOTE | 2018-09-28 09:58 | MHIPNPDOC ---
[facility] Progress Note Progress Note DATE OF SERVICE: 09/28/18 HISTORY: Patient is a 37 -year-old , female, with a history of depression d/c [facility] 03/2018 who was admitted after telling her CM that She was suicidal with plan to drink herself to due to family stressors. In the ED pt reported feeling tired of being a disappointment to her family and depression over the "not wanting to see me" over the holidays. Pt stated she was recently treated at [facility] for Pneumonia and when d/c had a seizure (has seizure d/o on keppra) waiting for ride home. Pt admitted to drinking 2 mini bottles of wine night prior admission and BAL in ED 0.044. Nursing staff in ED noted ecchymosis right chest/chin/right shoulder and rash on buttocks. Pt seen today and states she tired of her family making her feel like a disappointment b/c they don't want to be around her if she's been drinking. Pt states she had been doing well but "slipped up" and relapsed right before [place]. States she was drinking 1-2 days/wk roughly 1 liter of wine each day ("I have to finish the bottle"). States she knows her family wants her to get the help for her alcohol use and encouraged her to go to meeting that she admits she hasn't been to one yet b/c "I feel like a hypocrite b/c I'm still drinking." States Celexa is beneficial for her mood but it's her drinking that makes her depressed. Denies alcohol withdrawal symptoms here. Denies current si/hi, hallucinations, delusions. Feels safe here. VITAL SIGNS: See below. NEW TEST RESULTS: See below. CONSULTS: medicine Iron deficiency anemia. Supplement ordered. Continue to follow hemoglobin and hematocrit. Cirrhosis with alcoholic hepatitis. Model for end-stage liver disease (MELD) score of 23 and discriminate function of 41. The patient will benefit from steroids. Prednisone started. Continue aldactone. Followup with [facility] in [place]. Ammonia level appreciated. Followup comprehensive metabolic panel and INR. Counseling provided for alcohol cessation. Monitor for withdrawal. CURRENT MEDICATIONS: See below. MENTAL STATUS EXAMINATION: General Appearance: disheveled, appears stated age, hospital scrubs/clothing Build: overweight Demeanor: average, tearful regarding fear of dying liver failure if continues to use alcohol Activity: average, less anxious Behavior: cooperative Speech: clear, spontaneous, normal volume, reg/rate,rhythm,volume Mood: less depressed and anxious Mood "ok" Affect: improved range, congruent, less anxious regarding inpatient rehab Thought Process: logical/linear, less depressed, more hopeful about going to rehab Thought Content (Delusions): none reported, denies SI, HI, AVH Thought Content (Other): none reported Thought Content (Aggressive): none reported Perception (Hallucinations): none reported Perception (Other): none reported Cognition (Impairment of): none reported Cognition(Intelligence Est.): average Oriented: Awake, Alert, Oriented times three Insight: fair Judgment: Fair Psychosis: Denies DIAGNOSES: Major Depressive D/O recurrent, moderate, 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 Terry again on follow-up yesterday. Ptseen and states she's doing good. She's more future oriented toward going to rehab and hopeful. States she stayed sober the longest after she attended the [facility] in [place] and hopes to go again. Realizes she may need to do inpatient rehab and step down to the [facility] after which she's willing to do. Feels guilty about "snapping last night" due to all the noise from another pt and told it's ok as it's something she really isn't used to and understandable. Encouraged to learn to forgive herself for her wrongs. Denies alcohol withdrawal symptoms. States she's being social on the milieu which is beneficial. States she slept well last night. Feels she is tolerating her medications and they're beneficial. She is attending groups and finding them helpful. She denies insomnia, SI/HI, hallucinations, delusions, alcohol withdrawal symptoms. Pt feels safe here. MANAGEMENT PLAN: continue current plan. Refer to inpatient substance abuse treatment. Medications: [facility] protocol keppra 1500mg bid celexa 20mg daily TIME SPENT: 30 minutes. Vital Signs Vital Signs Date Time Temp Pulse Resp B/P (MAP) Pulse Ox O2 Delivery O2 Flow Rate FiO2 09/28/18 06:43 97.3 69 18 120/59 (79) 09/26/18 06:16 Room Air 09/24/18 17:00 96 Laboratory Data 24H Labs Laboratory Tests 2 09/27/18 11:52: Bedside Glucose (Misc Panel) 134H 09/27/18 17:15: Bedside Glucose (Misc Panel) 198H 09/27/18 20:36: Bedside Glucose (Misc Panel) 182H 09/28/18 06:27: Nucleated Red Blood Cells % (auto) 0.0, Prothrombin Time 19.9H, Prothromb Time International Ratio 1.66, Anion Gap 7L, Glomerular Filtration Rate > 60.0, Blood Urea Nitrogen 8, Creatinine 0.80, Sodium Level 143, Potassium Level 4.3, Chloride Level 110H, Carbon Dioxide Level 26, Calcium Level 8.4L, Aspartate Amino Transf (AST/SGOT) 60H, Alanine Aminotransferase (ALT/SGPT) 40, Alkaline Phosphatase 146H, Total Bilirubin 4.2H, Total Protein 6.5, Albumin 1.9L, Magnesium Level 1.6L, Albumin/Globulin Ratio 0.41L 09/28/18 06:31: Bedside Glucose (Misc Panel) 69L CBC/BMP Laboratory Tests 09/28/18 06:27 Red Blood Count 3.15 L, Mean Corpuscular Volume 101.6 H, Mean Corpuscular He moglobin 33.3 H, Mean Corpuscular Hemoglobin Concent 32.8, Red Cell Distribution Width 20.6 H, Calcium Level 8.4 L, Aspartate Amino Transf (AST/SGOT) 60 H, Alanine Aminotransferase (ALT/SGPT) 40, Alkaline Phosphatase 146 H, Total Bilirubin 4.2 H, Total Protein 6.5, Albumin 1.9 L Current Medications Current Medications Al Hydrox/Mg Hydrox/Simethicone (Mylanta) 30 ml Q4HP PRN PO HEARTBURN/INDIGESTION; Start 09/24/18 at 14:30 Albuterol/ Ipratropium (Duoneb (Ipr 0.5mg/Alb 2.5mg)) 3 ml RQID NEB ; Start 09/27/18 at 20:00 Amoxicillin/ Clavulanate Potassium (Augmentin) 875 mg BID PO Last administered on 09/28/18at 08:34; Start 09/24/18 at 21:00; Stop 09/29/18 at 12:00 Chlorhexidine Gluconate (Peridex Oral Rinse) 15 ml TID MT ; Start 09/26/18 at 16:00; Status Cancel Citalopram Hydrobromide (CeleXA) 20 mg DAILY PO Last administered on 09/28/18at 08:34; Start 09/25/18 at 09:00 Cod Liver Oil/ Zinc Oxide (Desitin) apply to anal area BID TOP Last administered on 09/28/18at 08:33; Start 09/25/18 at 09:00 Dextrose (Dextrose 50%) 25 ml ASDIRECTED PRN IV SEE LABEL COMMENTS; Start 09/25/18 at 09:45 Ferrous Gluconate (Fergon) 324 mg DAILY PO Last administered on 09/28/18at 08:34; Start 09/25/18 at 09:00 Folic Acid (Folic Acid) 1 mg DAILY PO Last administered on 09/28/18at 08:33; Start 09/24/18 at 09:00 Gabapentin (Neurontin) 100 mg TID PO Last administered on 09/28/18at 08:34; Start 09/24/18 at 16:00 Glipizide (Glucotrol) 5 mg DAILY@0730 PO ; Start 09/25/18 at 07:30; Stop 09/25/18 at 07:59; Status DC Glucagon (Glucagon) 1 mg ASDIRECTED PRN SC SEE LABEL COMMENTS; Start 09/25/18 at 09:45 Glucose (Glucose) 16 GM ASDIRECTED PRN PO SEE LABEL COMMENTS; Start 09/25/18 at 09:45 Guaifenesin (Mucinex Tab Er) 600 mg BID PO Last administered on 09/28/18at 08:34; Start 09/27/18 at 21:00 Home Med (Med Rec Complete!) ASDIRECTED XX ; Start 09/24/18 at 15:30; Stop 09/24/18 at 15:37; Status DC Ibuprofen (Advil) 400 mg Q6HP PRN PO PAIN Last administered on 09/26/18at 23:18; Start 09/24/18 at 14:30 Insulin Human Lispro (HumaLOG INSULIN) See Protocol Table AC SC Last administered on 09/27/18at 17:17; Start 09/25/18 at 12:00 Insulin Human Lispro (HumaLOG INSULIN) See Protocol Table QHS SC ; Start 09/25/18 at 21:00 Lactobacillus Acidophilus (Bacid) 1 ea BIDWM PO Last administered on 09/28/18 08:33; Start 09/25/18 at 18:00 Levetiracetam (Keppra) 1,500 mg BID PO Last administered on 09/28/18 08:34; Start 09/24/18 at 21:00 Loperamide HCl (Imodium) 2 mg ASDIRECTED PRN PO DIARRHEA Last administered on 09/28/18 08:34; Start 09/26/18 at 09:45 Lorazepam (Ativan) 2 mg ASDIRECTED PRN PO SEE PROTOCOL; Start 09/24/18 at 14:30; Status Cancel Magnesium Hydroxide (Milk Of Magnesia) 30 ml DAILYPRN PRN PO CONSTIPATION; Start 09/24/18 at 14:30 Magnesium Oxide (Mag-Ox) 400 mg BID PO Last administered on 09/28/18 08:34; Start 09/28/18 at 09:00 Magnesium Oxide (Mag-Ox) 400 mg DAILY PO Last administered on 09/27/18 08:44; Start 09/25/18 at 13:00; Stop 09/28/18 at 08:08; Status DC Multivitamins (Theragram-M) 1 tab DAILY PO Last administered on 09/28/18 08:33; Start 09/24/18 at 09:00 Mupirocin (Bactroban 2% Ointment) APPLY TO BUTTOCKS BID TOP Last administered on 09/25/18at 10:58; Start 09/25/18 at 09:00; Stop 09/25/18 at 13:06; Status DC Nystatin (Mycostatin) 5 ml TID SS Last administered on 09/28/18 08:33; Start 09/26/18 at 16:00 Pantoprazole Sodium (Protonix) 40 mg DAILY PO Last administered on 09/28/18 08:33; Start 09/25/18 at 09:00 Potassium Chloride (Micro-K Extencaps) 20 meq BID PO Last administered on 09/28/18 08:34; Start 09/24/18 at 21:00 Prednisone (Deltasone) 40 mg DAILY PO Last administered on 09/28/18 08:33; Start 09/26/18 at 09:00 Spironolactone (Aldactone) 50 mg DAILY PO Last administered on 1/6/19at 08:33; Start 09/25/18 at 09:00 Thiamine HCl (Thiamine HCl) 100 mg BID PO Last administered on 09/26/18at 21:16; Start 09/24/18 at 21:00; Stop 09/27/18 at 04:14; Status DC Trazodone HCl (Desyrel) 50 mg QHSP PRN PO INSOMNIA Last administered on 09/27/18at 22:25; Start 09/27/18 at 15:00 Allergies Coded Allergies: No Known Drug Allergy (Verified Allergy, Unknown, 09/24/18) PHOEBE ARROYO DO Sep 28, 2018 09:58
[2018-09-28] MEDS: IBUPROFEN 400 MG TAB PO PRN (15:02)
[2018-09-28 18:00] VITALS: BP 139/73
--- NOTE | 2018-09-28 19:06 | IPNPDOC ---
Text Note Date of Service The patient was seen on 09/28/18. NOTE The patient is seen and examined. No other complaints. Denies any chest pain, pressure or discomfort. Denies any fevers or chills. Reported diarrhea improved PHYSICAL EXAMINATION: GENERAL: The patient is obese, alert, comfortable and in no acute distress. HEENT: Normocephalic, atraumatic. PULMONARY: Bilaterally clear. CARDIAC: Regular. S1, S2. ABDOMEN: Soft, nontender. Positive bowel sounds. EXTREMITIES: No clubbing, cyanosis or edema. SKIN: buttocks stage 1 ulcer. stable ASSESSMENT AND PLAN: This is a 37-year-old patient with underlying medical history of depression, substance abuse, alcohol abuse, history of suicide ideation, seizure disorder, gastroesophageal reflux disease (GERD), iron deficiency anemia, hypertension, obstructive sleep apnea on continuous positive airway pressure (CPAP) at night, obesity, cirrhosis, follows with [facility], admitted to inpatient mental health for depressive disorder. Medicine consulted for medical management. 1. Depression, anxiety, substance abuse. Management as per psychiatry. Continue current medications. 2. Diabetes. Non insulin dependent. Holding oral medications due to persistent hypoglycemia. Follow fingersticks. Insulin via protocol 3. Obesity complicating care. 4. Chronic headache. Continue current medications. Avoid Tylenol. Pain management consultation if worsens. 5. Gastroesophageal reflux disease (GERD). Continue proton pump inhibitor. 6. Iron deficiency anemia. Supplement ordered. Continue to follow hemoglobin and hematocrit. 7. Cirrhosis with alcoholic hepatitis. Model for end-stage liver disease (MELD) score of 23 and discriminate function of 41. The patient will benefit from steroids. Prednisone started 28 days course, taper over the last 7 days of course. Continue aldactone. Followup with [facility] in [place]. Ammonia level appreciated. Followup comprehensive metabolic panel and INR. Counseling provided for alcohol cessation. Monitor for withdrawal. 8. Obstructive sleep apnea. Encourage continuous positive airway pressure (CPAP) at night. 9. Seizure disorder. Continue current medications. We will monitor. 10. Substance abuse. Management as per psychiatry. 11. buttock's wound Bactroban has been ordered. Wound care consultation. Continue Augmentin. 12. Diarrhea. The patient is a poor historian. We will monitor clinically. Gi panel 13. Recent pneumonia. The patient's physical examination is benign. We will monitor. 14. Hypokalemia. We will monitor electrolytes and supplement as needed. 15. Deep vein thrombosis (DVT) prophylaxis. Early ambulation. DISPOSITION: As per psychiatrist. VS,Kirbye, I+O VS, Colinbone, I+O Laboratory Tests 09/28/18 06:27 Red Blood Count 3.15 L, Mean Corpuscular Volume 101.6 H, Mean Corpuscular Hemoglobin 33.3 H, Mean Corpuscular Hemoglobin Concent 32.8, Red Cell Distribution Width 20.6 H, Calcium Level 8.4 L, Aspartate Amino Transf (AST/SGOT) 60 H, Alanine Aminotransferase (ALT/SGPT) 40, Alkaline Phosphatase 146 H, Total Bilirubin 4.2 H, Total Protein 6.5, Albumin 1.9 L Vital Signs Date Time Temp Pulse Resp B/P (MAP) Pulse Ox O2 Delivery O2 Flow Rate FiO2 09/28/18 06:43 97.3 69 18 120/59 (79) 09/26/18 06:16 Room Air 09/24/18 17:00 96 DANYELL ARMIJO MD Sep 28, 2018 19:06
[2018-09-29 06:20] VITALS: BP 129/73
[2018-09-29] MEDS: HumaLOG INSULIN (NovoLOG) PER UNIT SC SCH ×4 (06:49→21:16)
[2018-09-29 07:04] LABS: ALBUMIN 1.9 GM/DL (3.2-5.2); ALT/SGPT 45 U/L (12-78); BILIRUBIN,TOTAL 3.2 MG/DL (0.2-1.0); BLOOD UREA NITROGEN 8 MG/DL (7-18); CALCIUM LEVEL 8.3 MG/DL (8.5-10.1); CARBON DIOXIDE LEVEL 20 MEQ/L (21-32); CHLORIDE LEVEL 112 MEQ/L (98-107); CREATININE FOR GFR 0.78 MG/DL (0.55-1.30); GLOMERULAR FILTRATION RATE > 60.0 (>60); GLUCOSE, FASTING 82 MG/DL (70-100); MAGNESIUM LEVEL 1.9 MG/DL (1.8-2.4); POTASSIUM SERUM 4.3 MEQ/L (3.5-5.1); SODIUM LEVEL 141 MEQ/L (136-145)
[2018-09-29 07:18] LABS: HEMATOCRIT 33.3 % (36.0-47.0); MEAN CORPUSCULAR HEMOGLOBIN 32.8 pg (27.0-33.0); MEAN CORPUSCULAR VOLUME 99.4 fl (80.0-96.0); PLATELET COUNT, AUTOMATED 146 10^3/uL (150-450); RED BLOOD COUNT 3.35 10^6/uL (4.00-5.40); WHITE BLOOD COUNT 13.2 10^3/uL (4.0-10.0)
[2018-09-29] MEDS: LACTOBACILLUS ACIDOPHILUS CAP (BACID) PO SCH ×2 (07:42→17:11)
[2018-09-29] MEDS: LOPERAMIDE 2 MG CAP PO PRN (07:43)
[2018-09-29] MEDS: IPRATROPIUM 0.5MG/ALBUTEROL 2.5MG INH SOL UD 3ML (DUONEB)(J7620) NEB SCH ×4 (09:24→23:30)
--- NOTE | 2018-09-29 09:28 | IPNPDOC ---
Date Seen The patient was seen on 09/29/18. Progress Note PCP: [facility] ATTENDING: Dr. Kenyetta Andre HPI: 37 yo F admitted to [facility] for unspecified depressive disorder, being medically examined today. The pt states she has been feeling better. Buttock wound is improved. Denies any fevers, chills, weakness, fatigue, MITCHELL, CP, SOB, cough, palpitations, abdominal pain, N/V/D or changes in bowel or bladder habits. PMHx: Anxiety Depression Substance use Alcohol use. History of SI Seizure disorder. Per Patient, has leg shaking and falling. Follows with Dr Aviles. GERD NIDDM Iron deficiency Hypertension Allergic rhinitis SHANIKA, CPAP. Obesity. BMI 42.0 Cirrhosis. Follows with [facility]. PSHX: History of skull fracture status post fall in a parking lot 2014, chronic head pain. 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 No acute distress. Alert and oriented x 3. Slow to respond to questions. HEENT: Normocephalic, atraumatic. Sclera are mildly icteric. Conjunctiva without injection. Moist mucous membranes. CHEST: Regular rate and rhythm, +S1, +S2 LUNGS: Clear to auscultation bilaterally. No wheezes, rales, or rhonchi. Breathing appears symmetric and easy. Patient is speaking in full sentences. No accessory muscle use. ABD: Round, soft, non-tender, non-distended. +Bowel sounds throughout. No rebound or guarding. No costovertebral angle tenderness. EXT: Pulses 2+ bilaterally dorsalis pedis and radial. No lower extremity edema appreciated. SKIN: [place], dry, warm. Dressing applied to buttock wound. No drainage noted. NEURO: Alert and oriented x 3. Cranial nerves III-XII are intact. No focal deficits appreciated. EKG: SINUS TACHYCARDIA WITH SHORT IL INTERVAL WITH OCCASIONAL ATRIAL PREMATURE COMPLEXES NONSPECIFIC T-WAVE ABNORMALITY SIMILAR TO 04/01/18 Electronically Signed On 09-19-2018 21:03:49 EST by Tong Dykes&P: 37 yo F admitted to [facility] for unspecified depressive disorder 1. Psych. Plan per Psychiatry. EKG on file. 2. NIDDM. Consistent carbohydrate diet. Glipizide on hold. Fingerstick blood sugar before meals at bedtime with sliding scale coverage. 3. Chronic head pain. Continue gabapentin. Continue ibuprofen 400 mg every 6 hours as needed. Avoid Tylenol. Consider pain management if needed. 4. GERD. Continue Protonix 40 mg daily. 5. Iron deficiency. Continue iron supplement. Hemoglobin is noted to be 11.0. 6. Cirrhosis. Continue outpatient follow-up with [facility] in [place]. Continue Aldactone 50 mg by mouth daily. MELD-Na 23 Prednisone started 28 days course, taper over the last 7 days of course. Ammonia level 29 09/26/18. INR 1.66 09/28/18. 7. SHANIKA. Continue CPAP with home settings. 8. Seizure disorder. Unclear when her last seizure occurred. Bruising is noted to the chin and right chest area however this is documented at the time of her emergency department evaluation 09/19/18 and subsequent transfer to [facility] in [facility]. Continue Keppra 1500 mg by mouth twice a day. Keppra level is pending. Seizure precautions. Continue outpatient follow-up with neurology. 9 Follow up with PCP on discharge. 10. Substance use. Management per psychiatry. 11. Buttock wound. Wound consult completed. Continue with dressing changes as per wound management. 12. Diarrhea. Resolved. C diff neg. 13. Recent pneumonia. The patient states she was treated for pneumonia during recent hospitalization at [facility] in [place]. She was discharged 09/22/18 to finish course of oral Augmentin 875 mg by mouth twice a day as outpatient. She denies cough. Patient is afebrile. WBC this a.m. is noted to be 13.2, possible steroid effect. Finish Augmentin 875 mg by mouth twice a day. Continue Mucinex. Duo nebs ordered. I/S. Monitor CBC/CMP. 14. Hypokalemia. KCl Supplement 20 mEq by mouth twice a day. Potassium within normal limits. 15. Hypomagnesemia Continue supplements. Magnesium level this a.m. 1.9. Monitor. 15. Staff member Chiquis present throughout exam. VS, I&O, 24H, Colinbonzac Vital Signs/I&O Vital Signs Date Time Temp Pulse Resp B/P (MAP) Pulse Ox O2 Delivery O2 Flow Rate FiO2 09/29/18 06:20 96.9 67 14 129/73 (91) 09/26/18 06:16 Room Air 09/24/18 17:00 96 Laboratory Data 24H LABS Laboratory Tests 2 09/28/18 11:49: Bedside Glucose (Misc Panel) 187H 09/28/18 17:04: Bedside Glucose (Misc Panel) 270H 09/28/18 21:09: Bedside Glucose (Misc Panel) 184H 09/29/18 06:11: Anion Gap 9, Glomerular Filtration Rate > 60.0, Blood Urea Nitrogen 8, Creatinine 0.78, Sodium Level 141, Potassium Level 4.3, Chloride Level 112H, Carbon Dioxide Level 20L, Calcium Level 8.3L, Aspartate Amino Transf (AST/SGOT) 72H, Alanine Aminotransferase (ALT/SGPT) 45, Alkaline Phosphatase 185H, Total Bilirubin 3.2H, Total Protein 6.0L, Albumin 1.9L, Magnesium Level 1.9, Albumin/Globulin Ratio 0.46L 09/29/18 06:13: Bedside Glucose (Misc Panel) 75 09/29/18 07:04: Nucleated Red Blood Cells % (auto) 0.0 CBC/BMP Laboratory Tests 09/29/18 06:11 Calcium Level 8.3 L, Aspartate Amino Transf (AST/SGOT) 72 H, Alanine Aminotransferase (ALT/SGPT) 45, Alkaline Phosphatase 185 H, Total Bilirubin 3.2 H, Total Protein 6.0 L, Albumin 1.9 L 09/29/18 07:04 Red Blood Count 3.35 L, Mean Corpuscular Volume 99.4 H, Mean Corpuscular Hemoglobin 32.8, Mean Corpuscular Hemoglobin Concent 33.0, Red Cell Distribution Width 20.6 H Microbiology Microbiology 09/28/18 Clostridium difficile (PCR) - Final, Complete 09/25/18 Wound Culture - Final, Complete Proteus Vulgaris Enterococcus Faecalis Enterococcus Faecium Lety Magana Sep 29, 2018 09:28
[2018-09-29] MEDS: NYSTATIN 500,000 U/5 ML SUSP UDC SS SCH ×3 (10:10→21:12)
[2018-09-29] MEDS: DIAPER RELIEF PASTE (DESITIN) 60GM TOP SCH ×2 (10:10→21:16)
[2018-09-29] MEDS: predniSONE 20 MG TAB PO SCH (10:11)
[2018-09-29] MEDS: CitaloPRAM (CeleXA) 20 MG TAB PO SCH (10:11)
[2018-09-29] MEDS: POTASSIUM CHLORIDE 10 MEQ SR TABLET PO SCH ×2 (10:11→21:13)
[2018-09-29] MEDS: PANTOPRAZOLE 40MG TAB (PROTONIX) PO SCH (10:12)
[2018-09-29] MEDS: FOLIC ACID 1 MG TAB PO SCH (10:12)
[2018-09-29] MEDS: guaiFENesin ER 600 MG TAB PO SCH ×2 (10:12→21:13)
[2018-09-29] MEDS: GABAPENTIN 100 MG CAP PO SCH ×3 (10:12→21:13)
[2018-09-29] MEDS: MAGNESIUM OXIDE 400 MG TAB (MAG-OX) PO SCH ×2 (10:12→21:13)
[2018-09-29] MEDS: levETIRAcetam 250MG TABLET (KEPPRA) PO SCH ×2 (10:12→21:13)
[2018-09-29] MEDS: MULTIVITAMINS/MINERALS THERAP 1 TAB PO SCH (10:12)
[2018-09-29] MEDS: AUGMENTIN 875 MG TAB PO SCH (10:12)
[2018-09-29] MEDS: SPIRONOLACTONE 50 MG TAB PO SCH (10:13)
[2018-09-29] MEDS: FERROUS GLUCONATE 324 MG TAB PO SCH (10:13)
--- NOTE | 2018-09-29 12:07 | MHIPNPDOC ---
[facility] Progress Note Progress Note DATE OF SERVICE: 09/29/18 HISTORY: Patient is a 37 -year-old , female, with a history of depression d/c [facility] 03/2018 who was admitted after telling her CM that She was suicidal with plan to drink herself to due to family stressors. In the ED pt reported feeling tired of being a disappointment to her family and depression over the "not wanting to see me" over the holidays. Pt stated she was recently treated at [facility] for Pneumonia and when d/c had a seizure (has seizure d/o on keppra) waiting for ride home. Pt admitted to drinking 2 mini bottles of wine night prior admission and BAL in ED 0.044. Nursing staff in ED noted ecchymosis right chest/chin/right shoulder and rash on buttocks. Pt seen today and states she tired of her family making her feel like a disappointment b/c they don't want to be around her if she's been drinking. Pt states she had been doing well but "slipped up" and relapsed right before [place]. States she was drinking 1-2 days/wk roughly 1 liter of wine each day ("I have to finish the bottle"). States she knows her family wants her to get the help for her alcohol use and encouraged her to go to meeting that she admits she hasn't been to one yet b/c "I feel like a hypocrite b/c I'm still drinking." States Celexa is beneficial for her mood but it's her drinking that makes her depressed. Denies alcohol withdrawal symptoms here. Denies current si/hi, hallucinations, delusions. Feels safe here. VITAL SIGNS: See below. NEW TEST RESULTS: See below. CONSULTS: medicine who continue to follow pt daily Iron deficiency anemia. Supplement ordered. Continue to follow hemoglobin and hematocrit. Cirrhosis with alcoholic hepatitis. Model for end-stage liver disease (MELD) score of 23 and discriminate function of 41. The patient will benefit from steroids. Prednisone started. Continue aldactone. Followup with [facility] in [place]. Ammonia level appreciated. Followup comprehensive metabolic panel and INR. Counseling provided for alcohol cessation. Monitor for withdrawal. CURRENT MEDICATIONS: See below. MENTAL STATUS EXAMINATION: General Appearance: disheveled, appears stated age, hospital scrubs/clothing Build: overweight Demeanor: average, cooperative, hopeful regarding going to rehab Activity: average, less anxious Behavior: cooperative Speech: clear, spontaneous, normal volume, reg/rate,rhythm,volume Mood: less depressed and anxious Mood "ok" Affect: improved range, congruent, hopeful regarding inpatient rehab Thought Process: logical/linear, less depressed, more hopeful about going to rehab Thought Content (Delusions): none reported, denies SI, HI, AVH Thought Content (Other): none reported Thought Content (Aggressive): none reported Perception (Hallucinations): none reported Perception (Other): none reported Cognition (Impairment of): none reported Cognition(Intelligence Est.): average Oriented: Awake, Alert, Oriented times three Insight: fair Judgment: Fair Psychosis: Denies DIAGNOSES: Major Depressive D/O recurrent, moderate, 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 She's future oriented toward going to rehab and hopeful. States she spoke with her CM at [facility] over the phone who is setting her up for substance abuse treatment at the in [place] as states did well in the past when she was there. Told will have d/c planning call [facility] to facilitate substance abuse treatment at the directly after d/c date from [facility]. Pt in end stage liver failure with resultant anemia/skin bruising and needs to go directly from [facility] to treatment as pt states she knows if she were to go home prior to rehab admission she would drink, which at this point is life threatening for her given her stage and degree of liver failure. Denies alcohol withdrawal symptoms. States she's being social on the milieu which is beneficial. States she slept well last night. Feels she is tolerating her medications and they're beneficial. She is attending groups and finding them helpful. She denies insomnia, SI/HI, hallucinations, delusions, alcohol withdrawal symptoms. Pt feels safe here. MANAGEMENT PLAN: continue current plan. Refer to inpatient substance abuse treatment. Medications: [facility] protocol keppra 1500mg bid celexa 20mg daily TIME SPENT: 30 minutes. Vital Signs Vital Signs Date Time Temp Pulse Resp B/P (MAP) Pulse Ox O2 Delivery O2 Flow Rate FiO2 09/29/18 06:20 96.9 67 14 129/73 (91) 09/26/18 06:16 Room Air 09/24/18 17:00 96 Laboratory Data 24H Labs Laboratory Tests 2 09/28/18 17:04: Bedside Glucose (Misc Panel) 270H 09/28/18 21:09: Bedside Glucose (Misc Panel) 184H 09/29/18 06:11: Anion Gap 9, Glomerular Filtration Rate > 60.0, Blood Urea Nitrogen 8, Creatinine 0.78, Sodium Level 141, Potassium Level 4.3, Chloride Level 112H, Carbon Dioxide Level 20L, Calcium Level 8.3L, Aspartate Amino Transf (AST/SGOT) 72H, Alanine Aminotransferase (ALT/SGPT) 45, Alkaline Phosphatase 185H, Total Bilirubin 3.2H, Total Protein 6.0L, Albumin 1.9L, Magnesium Level 1.9, Albumin/Globulin Ratio 0.46L 09/29/18 06:13: Bedside Glucose (Misc Panel) 75 09/29/18 07:04: Nucleated Red Blood Cells % (auto) 0.0 09/29/18 11:46: Bedside Glucose (Misc Panel) 125H CBC/BMP Laboratory Tests 09/29/18 06:11 Calcium Level 8.3 L, Aspartate Amino Transf (AST/SGOT) 72 H, Alanine Aminotransferase (ALT/SGPT) 45, Alkaline Phosphatase 185 H, Total Bilirubin 3.2 H, Total Protein 6.0 L, Albumin 1.9 L 09/29/18 07:04 Red Blood Count 3.35 L, Mean Corpuscular Volume 99.4 H, Mean Corpuscular Hemoglobin 32.8, Mean Corpuscular Hemoglobin Concent 33.0, Red Cell Distribution Width 20.6 H Current Medications Current Medications Al Hydrox/Mg Hydrox/Simethicone (Mylanta) 30 ml Q4HP PRN PO HEARTBURN/INDIGESTION; Start 09/24/18 at 14:30 Albuterol/ Ipratropium (Duoneb (Ipr 0.5mg/Alb 2.5mg)) 3 ml RQID NEB ; Start 09/27/18 at 20:00 Amoxicillin/ Clavulanate Potassium (Augmentin) 875 mg BID PO Last administered on 09/29/18at 10:12; Start 09/24/18 at 21:00; Stop 09/29/18 at 12:00 Chlorhexidine Gluconate (Peridex Oral Rinse) 15 ml TID MT ; Start 09/26/18 at 16:00; Status Cancel Citalopram Hydrobromide (CeleXA) 20 mg DAILY PO Last administered on 09/29/18at 10:11; Start 09/25/18 at 09:00 Cod Liver Oil/ Zinc Oxide (Desitin) apply to anal area BID TOP Last administered on 09/29/18at 10:10; Start 09/25/18 at 09:00 Dextrose (Dextrose 50%) 25 ml ASDIRECTED PRN IV SEE LABEL COMMENTS; Start 09/25/18 at 09:45 Ferrous Gluconate (Fergon) 324 mg DAILY PO Last administered on 09/29/18at 10:13; Start 09/25/18 at 09:00 Folic Acid (Folic Acid) 1 mg DAILY PO Last administered on 09/29/18at 10:12; Start 09/24/18 at 09:00 Gabapentin (Neurontin) 100 mg TID PO Last administered on 09/29/18at 10:12; Start 09/24/18 at 16:00 Glipizide (Glucotrol) 5 mg DAILY@0730 PO ; Start 09/25/18 at 07:30; Stop 09/25/18 at 07:59; Status DC Glucagon (Glucagon) 1 mg ASDIRECTED PRN SC SEE LABEL COMMENTS; Start 09/25/18 at 09:45 Glucose (Glucose) 16 GM ASDIRECTED PRN PO SEE LABEL COMMENTS; Start 09/25/18 at 09:45 Guaifenesin (Mucinex Tab Er) 600 mg BID PO Last administered on 09/29/18at 10:12; Start 09/27/18 at 21:00 Home Med (Med Rec Complete!) ASDIRECTED XX ; Start 09/24/18 at 15:30; Stop 09/24/18 at 15:37; Status DC Ibuprofen (Advil) 400 mg Q6HP PRN PO PAIN Last administered on 09/28/18at 15:02; Start 09/24/18 at 14:30 Insulin Human Lispro (HumaLOG INSULIN) See Protocol Table AC SC Last administered on 09/28/18at 17:06; Start 09/25/18 at 12:00 Insulin Human Lispro (HumaLOG INSULIN) See Protocol Table QHS SC ; Start 09/25/18 at 21:00 Lactobacillus Acidophilus (Bacid) 1 ea BIDWM PO Last administered on 09/29/18 07:42; Start 09/25/18 at 18:00 Levetiracetam (Keppra) 1,500 mg BID PO Last administered on 09/29/18at 10:12; Start 09/24/18 at 21:00 Loperamide HCl (Imodium) 2 mg ASDIRECTED PRN PO DIARRHEA Last administered on 09/29/18at 07:43; Start 09/26/18 at 09:45 Lorazepam (Ativan) 2 mg ASDIRECTED PRN PO SEE PROTOCOL; Start 09/24/18 at 14:30; Status Cancel Magnesium Hydroxide (Milk Of Magnesia) 30 ml DAILYPRN PRN PO CONSTIPATION; Start 09/24/18 at 14:30 Magnesium Oxide (Mag-Ox) 400 mg BID PO Last administered on 09/29/18at 10:12; Start 09/28/18 at 09:00 Magnesium Oxide (Mag-Ox) 400 mg DAILY PO Last administered on 09/27/18at 08:44; Start 09/25/18 at 13:00; Stop 09/28/18 at 08:08; Status DC Multivitamins (Theragram-M) 1 tab DAILY PO Last administered on 09/29/18 10:12; Start 09/24/18 at 09:00 Mupirocin (Bactroban 2% Ointment) APPLY TO BUTTOCKS BID TOP Last administered on 09/25/18at 10:58; Start 09/25/18 at 09:00; Stop 09/25/18 at 13:06; Status DC Nystatin (Mycostatin) 5 ml TID SS Last administered on 09/29/18 10:10; Start 09/26/18 at 16:00 Pantoprazole Sodium (Protonix) 40 mg DAILY PO Last administered on 09/29/18 10:12; Start 09/25/18 at 09:00 Potassium Chloride (Micro-K Extencaps) 20 meq BID PO Last administered on 09/29/18at 10:11; Start 09/24/18 at 21:00 Prednisone (Deltasone) 40 mg DAILY PO Last administered on 09/29/18at 10:11; Start 09/26/18 at 09:00 Spironolactone (Aldactone) 50 mg DAILY PO Last administered on 09/29/18at 10:13; Start 09/25/18 at 09:00 Thiamine HCl (Thiamine HCl) 100 mg BID PO Last administered on 09/26/18at 21:16; Start 09/24/18 at 21:00; Stop 09/27/18 at 04:14; Status DC Trazodone HCl (Desyrel) 50 mg QHSP PRN PO INSOMNIA Last administered on 09/27/18at 22:25; Start 09/27/18 at 15:00 Allergies Coded Allergies: No Known Drug Allergy (Verified Allergy, Unknown, 09/24/18) PHOEBE ARROYO DO Sep 29, 2018 12:07 pm
[2018-09-29] MEDS: IBUPROFEN 400 MG TAB PO PRN ×2 (16:47→23:08)
[2018-09-29 18:00] VITALS: BP 144/76
[2018-09-30 06:31] VITALS: BP 126/66
[2018-09-30] MEDS: HumaLOG INSULIN (NovoLOG) PER UNIT SC SCH ×4 (06:34→20:17)
[2018-09-30 07:31] LABS: HEMATOCRIT 30.6 % (36.0-47.0); HEMOGLOBIN 9.9 g/dl (12.0-15.5); MEAN CORPUSCULAR HEMOGLOBIN 33.1 pg (27.0-33.0); MEAN CORPUSCULAR HGB CONC 32.4 g/dl (32.0-36.5); MEAN CORPUSCULAR VOLUME 102.3 fl (80.0-96.0); PLATELET COUNT, AUTOMATED 126 10^3/uL (150-450); RED BLOOD COUNT 2.99 10^6/uL (4.00-5.40); WHITE BLOOD COUNT 10.1 10^3/uL (4.0-10.0)
[2018-09-30 07:45] LABS: INR 1.68; PROTHROMBIN TIME 20.1 SECONDS (12.1-14.4)
[2018-09-30 07:59] LABS: ALBUMIN 1.9 GM/DL (3.2-5.2); ALT/SGPT 48 U/L (12-78); BLOOD UREA NITROGEN 6 MG/DL (7-18); CARBON DIOXIDE LEVEL 26 MEQ/L (21-32); CHLORIDE LEVEL 110 MEQ/L (98-107); CREATININE FOR GFR 0.79 MG/DL (0.55-1.30); GLOMERULAR FILTRATION RATE > 60.0 (>60); GLUCOSE, FASTING 96 MG/DL (70-100); MAGNESIUM LEVEL 1.8 MG/DL (1.8-2.4); POTASSIUM SERUM 4.6 MEQ/L (3.5-5.1); SODIUM LEVEL 141 MEQ/L (136-145); TOTAL PROTEIN 5.9 GM/DL (6.4-8.2)
[2018-09-30] MEDS: IPRATROPIUM 0.5MG/ALBUTEROL 2.5MG INH SOL UD 3ML (DUONEB)(J7620) NEB SCH ×2 (08:43→11:58)
[2018-09-30] MEDS: PANTOPRAZOLE 40MG TAB (PROTONIX) PO SCH (08:58)
[2018-09-30] MEDS: MULTIVITAMINS/MINERALS THERAP 1 TAB PO SCH (08:59)
[2018-09-30] MEDS: GABAPENTIN 100 MG CAP PO SCH ×3 (08:59→20:15)
[2018-09-30] MEDS: LACTOBACILLUS ACIDOPHILUS CAP (BACID) PO SCH ×2 (08:59→17:12)
[2018-09-30] MEDS: predniSONE 20 MG TAB PO SCH (08:59)
[2018-09-30] MEDS: FERROUS GLUCONATE 324 MG TAB PO SCH (08:59)
[2018-09-30] MEDS: FOLIC ACID 1 MG TAB PO SCH (08:59)
[2018-09-30] MEDS: CitaloPRAM (CeleXA) 20 MG TAB PO SCH (08:59)
[2018-09-30] MEDS: guaiFENesin ER 600 MG TAB PO SCH ×2 (08:59→20:15)
[2018-09-30] MEDS: SPIRONOLACTONE 50 MG TAB PO SCH (08:59)
[2018-09-30] MEDS: levETIRAcetam 250MG TABLET (KEPPRA) PO SCH ×2 (09:00→20:16)
[2018-09-30] MEDS: POTASSIUM CHLORIDE 10 MEQ SR TABLET PO SCH ×2 (09:00→20:15)
[2018-09-30] MEDS: MAGNESIUM OXIDE 400 MG TAB (MAG-OX) PO SCH ×2 (09:00→20:15)
[2018-09-30] MEDS: DIAPER RELIEF PASTE (DESITIN) 60GM TOP SCH ×2 (09:00→20:16)
[2018-09-30] MEDS: NYSTATIN 500,000 U/5 ML SUSP UDC SS SCH ×3 (09:01→20:16)
[2018-09-30] MEDS ORDERED: NYST50SS SS (09:46)
[2018-09-30] MEDS ORDERED: MUCI600T37 PO (09:46)
[2018-09-30] MEDS ORDERED: PRED20TA PO (09:46)
[2018-09-30] MEDS ORDERED: TRAZO50TA PO (09:46)
[2018-09-30] MEDS ORDERED: CELE20TA PO (09:46)
--- NOTE | 2018-09-30 10:03 | MHDSPDOC ---
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 In the ED pt reported feeling tired of being a disappointment to her family and depression over the "not wanting to see me" over the holidays. Pt stated she was recently treated at [facility] for Pneumonia and when d/c had a seizure (has seizure d/o on keppra) waiting for ride home. Pt admitted to drinking 2 mini bottles of wine night prior admission and BAL in ED 0.044. Nursing staff in ED noted ecchymosis right chest/chin/right shoulder and rash on buttocks. Pt seen today and states she tired of her family making her feel like a disappointment b/c they don't want to be around her if she's been drinking. Pt states she had been doing well but "slipped up" and relapsed right before [place]. States she was drinking 1-2 days/wk roughly 1 liter of wine each day ("I have to finish the bottle"). States she knows her family wants her to get the help for her alcohol use and encouraged her to go to meeting that she admits she hasn't been to one yet b/c "I feel like a hypocrite b/c I'm still drinking." States Celexa is beneficial for her mood but it's her drinking that makes her depressed. Denies alcohol withdrawal symptoms here. Denies current si/hi, hallucinations, delusions. Feels safe here. CONSULTANTS INVOLVED: Medicine Per Medicine Consult: Supplement ordered. Continue to follow hemoglobin and hematocrit. Cirrhosis with alcoholic hepatitis. Model for end-stage liver disease (MELD) score of 23 and discriminate function of 41. The patient will benefit from steroids. Prednisone started. Continue aldactone. Followup with [facility] in [place]. Ammonia level appreciated. Followup comprehensive metabolic panel and INR. Counseling provided for alcohol cessation. Medicine followed pt daily regarding anemia and liver failure. TREATMENT AND PROGRESS ON THE UNIT : Pt was admitted to [facility], seen for psychiatric assessment and started on ciwa protocol for alcohol withdrawal that she tolerated well and did not require any ativan during her stay as she denied alcohol withdrawal symptoms thru out her stay. Pt seen by medicine regarding anemia and elevated liver enzymes. Refer to med consult above. Dr. Terry followed pt daily during stay. Pt continued on her outpatient celexa 20mg for mood and anxiety and keppra 1500mg bid for seizure and tolerated both well, stated they were beneficial. She was provided trazodone 50mg qhs prn insomnia. Pt found her medications beneficial and tolerated them well. She attended groups daily during her stay. Her symptoms improved with treatment. On day of discharge she denied depression, anxiety, insomnia, SI/HI, hallucinations, delusions, alcohol withdrawal symptoms. She was discharged to inpatient substance abuse rehab admission at [facility]. She felt safe for discharge. DISCHARGE ASSESSMENT: Pt seen and states she's doing ok. She's not very excited about going to [facility] rehab today but agrees to go. Denies alcohol withdrawal symptoms. States she's being social on the milieu which is beneficial. States she slept well last night. Feels she is tolerating her medications and they're beneficial. She is attending groups and finding them helpful. She denies depression, anxiety, insomnia, SI/HI, hallucinations, delusions, alcohol withdrawal symptoms. Pt feels safe to be discharged to rehab today. MENTAL STATUS EXAMINATION ON DISCHARGE: General Appearance: disheveled, appears stated age, hospital scrubs/clothing Build: overweight Demeanor: average, cooperative, angry and hesitant about going to rehab Activity: average, irritable Behavior: cooperative Speech: clear, spontaneous, normal volume, reg/rate,rhythm,volume Mood: angry and hesitant about going to rehab Mood "Why do I have to go to rehab" Affect: angry and hesitant about going to rehab Thought Process: logical/linear, angry and hesitant about going to rehab Thought Content (Delusions): none reported, denies SI, HI, AVH Thought Content (Other): none reported Thought Content (Aggressive): none reported Perception (Hallucinations): none reported Perception (Other): none reported Cognition (Impairment of): none reported Cognition(Intelligence Est.): average Oriented: Awake, Alert, Oriented times three Insight: poor regarding alcohol use Judgment: poor regarding alcohol use Psychosis: Denies MEDICATIONS ON DISCHARGE: keppra 1500mg bid celexa 20mg daily Augmentin 875 mg BID Gabapentin 100 mg TID Mucinex Tab Er 600 mg BID Nystatin 5 ml TID SS Prednisone 40 mg DAILY [id number] mg DAILY Trazodone 50 mg QHSP PRN PO INSOMNIA PLAN/FOLLOWUP ARRANGEMENTS: D/c to inpatient substance abuse rehab admission at [facility]. The amount of time spent in the coordination of care for this patient was approximately 30 minutes. Vital Signs/I&Os Vital Signs Date Time Temp Pulse Resp B/P (MAP) Pulse Ox O2 Delivery O2 Flow Rate FiO2 09/30/18 06:31 97.8 71 14 126/66 (86) 09/26/18 06:16 Room Air 09/24/18 17:00 96 Laboratory Data Labs 24H Laboratory Tests 2 09/29/18 11:46: Bedside Glucose (Misc Panel) 125H 09/29/18 16:46: Bedside Glucose (Misc Panel) 236H 09/29/18 21:10: Bedside Glucose (Misc Panel) 299H 09/30/18 06:20: Bedside Glucose (Misc Panel) 105 09/30/18 07:09: Nucleated Red Blood Cells % (auto) 0.0, Prothrombin Time 20.1H, Prothromb Time International Ratio 1.68, Anion Gap 5L, Glomerular Filtration Rate > 60.0, Blood Urea Nitrogen 6L, Creatinine 0.79, Sodium Level 141, Potassium Level 4.6, Chloride Level 110H, Carbon Dioxide Level 26, Calcium Level 8.0L, Aspartate Amino Transf (AST/SGOT) 71H, Alanine Aminotransferase (ALT/SGPT) 48, Alkaline Phosphatase 175H, Total Bilirubin 3.0H, Total Protein 5.9L, Albumin 1.9L, Magnesium Level 1.8, Albumin/Globulin Ratio 0.48L CBC/BMP Laboratory Tests 09/30/18 07:09 Red Blood Count 2.99 L, Mean Corpuscular Volume 102.3 H, Mean Corpuscular H emoglobin 33.1 H, Mean Corpuscular Hemoglobin Concent 32.4, Red Cell Distribution Width 20.5 H, Calcium Level 8.0 L, Aspartate Amino Transf (AST/SGOT) 71 H, Alanine Aminotransferase (ALT/SGPT) 48, Alkaline Phosphatase 175 H, Total Bilirubin 3.0 H, Total Protein 5.9 L, Albumin 1.9 L Microbiology Microbiology 09/28/18 Clostridium difficile (PCR) - Final, Complete 09/25/18 Wound Culture - Final, Complete Proteus Vulgaris Enterococcus Faecalis Enterococcus Faecium Medications Scheduled (B Complex) 1 Tab Tab, 1 TAB PO DAILY, (Reported) (Therapeutic Multi Vitamin) 1 Tab Tab, 1 TAB PO DAILY, (Reported) (Certavite Senior/Antioxid) 1 Tab Tab, 1 TAB PO DAILY, (Reported) Amoxicillin/Clavulanate Potas (Amoxicillin/Clavulanate P 875-125 mg) 1 Tab Tab, 1 TAB PO BID, (Reported) X 7 DAYS. Cholecalciferol (Vitamin D3) 50,000 Unit Tab, 50,000 UNIT PO QMONTH, (Reported) TAKES THE 15TH OF THE MONTH. Citalopram Hydrobromide (Celexa) 20 Mg Tab, 20 MG PO DAILY for mood, #10 Ferrous Gluconate (Ferrous Gluconate) 324 Mg Tab, 324 MG PO DAILY, (Reported) Folic Acid (Folic Acid) 1 Mg Tab, 1 MG PO DAILY, (Reported) Gabapentin (Gabapentin) 100 Mg Cap, 100 MG PO TID, (Reported) Glipizide (Glipizide) 5 Mg Tab, 5 MG PO DAILY, (Reported) Guaifenesin (Mucinex) 600 Mg Tab, 600 MG PO BID for liver failure, #20 Levetiracetam (Levetiracetam) 750 Mg Tab, 1,500 MG PO BID, (Reported) Nystatin (Nystatin Oral Susp) 5 Ml Susp, 5 ML SS TID for fungus, #1 Pantoprazole Sodium (Pantoprazole Sodium) 40 Mg Tab, 40 MG PO DAILY, (Reported) Potassium Chloride (Potassium Chloride ER) 20 Meq Tab, 20 MEQ PO BID, (Reported) Prednisone (Prednisone) 20 Mg Tab, 40 MG PO DAILY for liver failure, #10 Spironolactone (Spironolactone) 50 Mg Tab, 50 MG PO DAILY, (Reported) Scheduled PRN Trazodone HCl (Trazodone HCl) 50 Mg Tab, 50 MG PO QHSP PRN for INSOMNIA, #10 Allergies Coded Allergies: No Known Drug Allergy (Verified Allergy, Unknown, 09/24/18) PHOEBE ARROYO DO Sep 30, 2018 09:37
--- NOTE | 2018-09-30 11:02 | MHIPNPDOC ---
[facility] Progress Note Progress Note DATE OF SERVICE: 09/30/18 DIAGNOSES: Major Depressive D/O recurrent, moderate, w/o psychosis Alcohol use d/o TBI Hx REASON FOR ADMISSION: Patient is a 37 -year-old , female, with a history of depression d/c [facility] 03/2018 who was admitted after telling her CM that She was suicidal with plan to drink herself to due to family stressors. In the ED pt reported feeling tired of being a disappointment to her family and depression over the "not wanting to see me" over the holidays. Pt stated she was recently treated at [facility] for Pneumonia and when d/c had a seizure (has seizure d/o on keppra) waiting for ride home. Pt admitted to drinking 2 mini bottles of wine night prior admission and BAL in ED 0.044. Nursing staff in ED noted ecchymosis right chest/chin/right shoulder and rash on buttocks. Pt seen today and states she tired of her family making her feel like a disappointment b/c they don't want to be around her if she's been drinking. Pt states she had been doing well but "slipped up" and relapsed right before [place]. States she was drinking 1-2 days/wk roughly 1 liter of wine each day ("I have to finish the bottle"). States she knows her family wants her to get the help for her alcohol use and encouraged her to go to meeting that she admits she hasn't been to one yet b/c "I feel like a hypocrite b/c I'm still drinking." States Celexa is beneficial for her mood but it's her drinking that makes her depressed. Denies alcohol withdrawal symptoms here. Denies current si/hi, beach llucinations, delusions. Feels safe here. CONSULTANTS INVOLVED: Medicine Per Medicine Consult: Supplement ordered. Continue to follow hemoglobin and hematocrit. Cirrhosis with alcoholic hepatitis. Model for end-stage liver disease (MELD) score of 23 and discriminate function of 41. The patient will benefit from steroids. Prednisone started. Continue aldactone. Followup with [facility] in [place]. Ammonia level appreciated. Followup comprehensive metabolic panel and INR. Counseling provided for alcohol cessation. Medicine followed pt daily regarding anemia and liver failure. . ASSESSMENT: Pt seen and states she's doing good. She's looking forward to going to the [facility] with [facility] today to await rehab admission at [facility] . Denies alcohol withdrawal symptoms. States she's being social on the milieu which is beneficial. States she slept well last night. Feels she is tolerating her medications and they're beneficial. She is attending groups and finding them helpful. She denies depression, anxiety, insomnia, SI/HI, hallucinations, delusions, alcohol withdrawal symptoms. Met with pt, d/c life care planner, and staff from [facility] and pt now refusing to go to rehab and stating she doesn't want to stop drinking. Will hold d/c for direct admission rehab. Pt angry currently regarding change in d/c plans and will follow-up tomorrow as has had some time to calm down and think. MENTAL STATUS EXAMINATION: General Appearance: clean, appears stated age, hospital scrubs/clothing Build: overweight Demeanor: average, cooperative, hopeful regarding going to rehab Activity: average Behavior: cooperative Speech: clear, spontaneous, normal volume, reg/rate,rhythm,volume Mood: euthymic Mood "ok" Affect: full range, congruent Thought Process: logical/linear Thought Content (Delusions): none reported, denies SI, HI, AVH Thought Content (Other): none reported Thought Content (Aggressive): none reported Perception (Hallucinations): none reported Perception (Other): none reported Cognition (Impairment of): none reported Cognition(Intelligence Est.): average Oriented: Awake, Alert, Oriented times three Insight: good Judgment: good Psychosis: Denies MEDICATIONS ON DISCHARGE: keppra 1500mg bid celexa 20mg daily Augmentin 875 mg BID Gabapentin 100 mg TID Mucinex Tab Er 600 mg BID Nystatin 5 ml TID SS Prednisone 40 mg DAILY [id number] mg DAILY Trazodone 50 mg QHSP PRN PO INSOMNIA PLAN/FOLLOWUP ARRANGEMENTS:Plan to d/c [facility] to [facility] 10/02/18. The amount of time spent in the coordination of care for this patient was approximately 30 minutes. Vital Signs Vital Signs Date Time Temp Pulse Resp B/P (MAP) Pulse Ox O2 Delivery O2 Flow Rate FiO2 09/30/18 06:31 97.8 71 14 126/66 (86) 09/26/18 06:16 Room Air 09/24/18 17:00 96 Laboratory Data 24H Labs Laboratory Tests 2 09/29/18 11:46: Bedside Glucose (Misc Panel) 125H 09/29/18 16:46: Bedside Glucose (Misc Panel) 236H 09/29/18 21:10: Bedside Glucose (Misc Panel) 299H 09/30/18 06:20: Bedside Glucose (Misc Panel) 105 09/30/18 07:09: Nucleated Red Blood Cells % (auto) 0.0, Prothrombin Time 20.1H, Prothromb Time International Ratio 1.68, Anion Gap 5L, Glomerular Filtration Rate > 60.0, Blood Urea Nitrogen 6L, Creatinine 0.79, Sodium Level 141, Potassium Level 4.6, Chloride Level 110H, Carbon Dioxide Level 26, Calcium Level 8.0L, Aspartate Amino Transf (AST/SGOT) 71H, Alanine Aminotransferase (ALT/SGPT) 48, Alkaline P hosphatase 175H, Total Bilirubin 3.0H, Total Protein 5.9L, Albumin 1.9L, Magnesium Level 1.8, Albumin/Globulin Ratio 0.48L CBC/BMP Laboratory Tests 09/30/18 07:09 Red Blood Count 2.99 L, Mean Corpuscular Volume 102.3 H, Mean Corpuscular Hemoglobin 33.1 H, Mean Corpuscular Hemoglobin Concent 32.4, Red Cell Distribution Width 20.5 H, Calcium Level 8.0 L, Aspartate Amino Transf ( AST/SGOT) 71 H, Alanine Aminotransferase (ALT/SGPT) 48, Alkaline Phosphatase 175 H, Total Bilirubin 3.0 H, Total Protein 5.9 L, Albumin 1.9 L Current Medications Current Medications Al Hydrox/Mg Hydrox/Simethicone (Mylanta) 30 ml Q4HP PRN PO HEARTBURN/IND IGESTION; Start 09/24/18 at 14:30 Albuterol/ Ipratropium (Duoneb (Ipr 0.5mg/Alb 2.5mg)) 3 ml RQID NEB Last administered on 09/30/18at 08:43; Start 09/27/18 at 20:00 Amoxicillin/ Clavulanate Potassium (Augmentin) 875 mg BID PO Last administered on 09/29/18at 10:12; Start 09/24/18 at 21:00; Stop 09/29/18 at 12:00; Status DC Chlorhexidine Gluconate (Peridex Oral Rinse) 15 ml TID MT ; Start 09/26/18 at 16:00; Status Cancel Citalopram Hydrobromide (CeleXA) 20 mg DAILY PO Last administered on 09/30/18at 08:59; Start 09/25/18 at 09:00 Cod Liver Oil/ Zinc Oxide (Desitin) apply to anal area BID TOP Last admi nistered on 09/29/18at 21:16; Start 09/25/18 at 09:00 Dextrose (Dextrose 50%) 25 ml ASDIRECTED PRN IV SEE LABEL COMMENTS; Start 09/25/18 at 09:45 Ferrous Gluconate (Fergon) 324 mg DAILY PO Last administered on 09/30/18at 08:59; Start 09/25/18 at 09:00 Folic Acid (Folic Acid) 1 mg DAILY PO Last administered on 09/30/18at 08:59; Start 09/24/18 at 09:00 Gabapentin (Neurontin) 100 mg TID PO Last administered on 09/30/18at 08:59; Start 09/24/18 at 16:00 Glipizide (Glucotrol) 5 mg DAILY@0730 PO ; Start 09/25/18 at 07:30; Stop 09/25/18 at 07:59; Status DC Glucagon (Glucagon) 1 mg ASDIRECTED PRN SC SEE LABEL COMMENTS; Start 09/25/18 at 09:45 Glucose (Glucose) 16 GM ASDIRECTED PRN PO SEE LABEL COMMENTS; Start 09/25/18 at 09:45 Guaifenesin (Mucinex Tab Er) 600 mg BID PO Last administered on 09/30/18at 08:59; Start 09/27/18 at 21:00 Home Med (Med Rec Complete!) ASDIRECTED XX ; Start 09/24/18 at 15:30; Stop 09/24/18 at 15:37; Status DC Ibuprofen (Advil) 400 mg Q6HP PRN PO PAIN Last administered on 09/29/18at 23:08; Start 09/24/18 at 14:30 Insulin Human Lispro (HumaLOG INSULIN) See Protocol Table AC SC Last a dministered on 09/29/18at 17:10; Start 09/25/18 at 12:00 Insulin Human Lispro (HumaLOG INSULIN) See Protocol Table QHS SC Last administered on 09/29/18 21:16; Start 09/25/18 at 21:00 Lactobacillus Acidophilus (Bacid) 1 ea BIDWM PO Last administered on 09/30/18 08:59; Start 09/25/18 at 18:00 Levetiracetam (Keppra) 1,500 mg BID PO Last administered on 09/30/18 09:00; Start 09/24/18 at 21:00 Loperamide HCl (Imodium) 2 mg ASDIRECTED PRN PO DIARRHEA Last administered on 09/29/18 07:43; Start 09/26/18 at 09:45 Lorazepam (Ativan) 2 mg ASDIRECTED PRN PO SEE PROTOCOL; Start 09/24/18 at 14:30; Status Cancel Magnesium Hydroxide (Milk Of Magnesia) 30 ml DAILYPRN PRN PO CONSTIPATION; Start 09/24/18 at 14:30 Magnesium Oxide (Mag-Ox) 400 mg BID PO Last administered on 09/30/18 09:00; Start 09/28/18 at 09:00 Magnesium Oxide (Mag-Ox) 400 mg DAILY PO Last administered on 09/27/18 08:44; Start 09/25/18 at 13:00; Stop 09/28/18 at 08:08; Status DC Multivitamins (Theragram-M) 1 tab DAILY PO Last administered on 09/30/18 08:59; Start 09/24/18 at 09:00 Mupirocin (Bactroban 2% Ointment) APPLY TO BUTTOCKS BID TOP Last administered on 09/25/18 10:58; Start 09/25/18 at 09:00; Stop 09/25/18 at 13:06; Status DC Nystatin (Mycostatin) 5 ml TID SS Last administered on 09/30/18 09:01; Start 09/26/18 at 16:00 Pantoprazole Sodium (Protonix) 40 mg DAILY PO Last administered on 09/30/18 08:58; Start 09/25/18 at 09:00 Potassium Chloride (Micro-K Extencaps) 20 meq BID PO Last administered on 09/30/18 09:00; Start 09/24/18 at 21:00 Prednisone (Deltasone) 40 mg DAILY PO Last administered on 09/30/18at 08:59; Start 09/26/18 at 09:00 Spironolactone (Aldactone) 50 mg DAILY PO Last administered on 09/30/18at 08:59; Start 09/25/18 at 09:00 Thiamine HCl (Thiamine HCl) 100 mg BID PO Last administered on 09/26/18at 21:16; Start 09/24/18 at 21:00; Stop 09/27/18 at 04:14; Status DC Trazodone HCl (Desyrel) 50 mg QHSP PRN PO INSOMNIA Last administered on 09/27/18at 22:25; Start 09/27/18 at 15:00 Allergies Coded Allergies: No Known Drug Allergy (Verified Allergy, Unknown, 09/24/18) PHOEBE ARROYO DO Sep 30, 2018 11:02 am
[2018-09-30 18:00] VITALS: BP 158/86
[2018-10-01 06:19] VITALS: BP 124/62
[2018-10-01] MEDS: HumaLOG INSULIN (NovoLOG) PER UNIT SC SCH ×4 (06:25→21:00)
[2018-10-01 07:14] LABS: HEMATOCRIT 32.4 % (36.0-47.0); HEMOGLOBIN 10.5 g/dl (12.0-15.5); MEAN CORPUSCULAR HEMOGLOBIN 33.1 pg (27.0-33.0); MEAN CORPUSCULAR HGB CONC 32.4 g/dl (32.0-36.5); MEAN CORPUSCULAR VOLUME 102.2 fl (80.0-96.0); PLATELET COUNT, AUTOMATED 134 10^3/uL (150-450); RED BLOOD COUNT 3.17 10^6/uL (4.00-5.40)
[2018-10-01] MEDS: IBUPROFEN 400 MG TAB PO PRN ×3 (07:22→22:02)
[2018-10-01 07:43] LABS: ALT/SGPT 57 U/L (12-78); BILIRUBIN,TOTAL 3.2 MG/DL (0.2-1.0); BLOOD UREA NITROGEN 7 MG/DL (7-18); CALCIUM LEVEL 8.2 MG/DL (8.5-10.1); CARBON DIOXIDE LEVEL 27 MEQ/L (21-32); CHLORIDE LEVEL 109 MEQ/L (98-107); CREATININE FOR GFR 0.87 MG/DL (0.55-1.30); GLOMERULAR FILTRATION RATE > 60.0 (>60); GLUCOSE, FASTING 77 MG/DL (70-100); MAGNESIUM LEVEL 1.6 MG/DL (1.8-2.4); POTASSIUM SERUM 4.4 MEQ/L (3.5-5.1); SODIUM LEVEL 142 MEQ/L (136-145); TOTAL PROTEIN 6.8 GM/DL (6.4-8.2)
[2018-10-01] MEDS: IPRATROPIUM 0.5MG/ALBUTEROL 2.5MG INH SOL UD 3ML (DUONEB)(J7620) NEB SCH (07:54)
[2018-10-01] MEDS: DIAPER RELIEF PASTE (DESITIN) 60GM TOP SCH ×2 (08:24→21:00)
[2018-10-01] MEDS: NYSTATIN 500,000 U/5 ML SUSP UDC SS SCH ×3 (08:25→20:10)
[2018-10-01] MEDS: levETIRAcetam 250MG TABLET (KEPPRA) PO SCH ×2 (08:25→21:16)
[2018-10-01] MEDS: FERROUS GLUCONATE 324 MG TAB PO SCH (08:25)
[2018-10-01] MEDS: guaiFENesin ER 600 MG TAB PO SCH ×2 (08:25→21:16)
[2018-10-01] MEDS: MULTIVITAMINS/MINERALS THERAP 1 TAB PO SCH (08:25)
[2018-10-01] MEDS: POTASSIUM CHLORIDE 10 MEQ SR TABLET PO SCH ×2 (08:25→21:17)
[2018-10-01] MEDS: SPIRONOLACTONE 50 MG TAB PO SCH (08:25)
[2018-10-01] MEDS: CitaloPRAM (CeleXA) 20 MG TAB PO SCH (08:25)
[2018-10-01] MEDS: MAGNESIUM OXIDE 400 MG TAB (MAG-OX) PO SCH ×2 (08:25→21:16)
[2018-10-01] MEDS: predniSONE 20 MG TAB PO SCH (08:26)
[2018-10-01] MEDS: GABAPENTIN 100 MG CAP PO SCH ×3 (08:26→21:17)
[2018-10-01] MEDS: PANTOPRAZOLE 40MG TAB (PROTONIX) PO SCH (08:26)
[2018-10-01] MEDS: FOLIC ACID 1 MG TAB PO SCH (08:26)
[2018-10-01] MEDS: LACTOBACILLUS ACIDOPHILUS CAP (BACID) PO SCH ×2 (08:26→17:10)
--- NOTE | 2018-10-01 09:05 | MHIPNPDOC ---
[facility] Progress Note Progress Note DATE OF SERVICE: 10/01/18 HISTORY: Patient is a 37 -year-old , female, with a history of depression d/c [facility] 03/2018 who was admitted after telling her CM that She was suicidal with plan to drink herself to due to family stressors. In the ED pt reported feeling tired of being a disappointment to her family and depression over the "not wanting to see me" over the holidays. Pt stated she was recently treated at [facility] for Pneumonia and when d/c had a seizure (has seizure d/o on keppra) waiting for ride home. Pt admitted to drinking 2 mini bottles of wine night prior admission and BAL in ED 0.044. Nursing staff in ED noted ecchymosis right chest/chin/right shoulder and rash on buttocks. Pt seen today and states she tired of her family making her feel like a disappointment b/c they don't want to be around her if she's been drinking. Pt states she had been doing well but "slipped up" and relapsed right before [place]. States she was drinking 1-2 days/wk roughly 1 liter of wine each day ("I have to finish the bottle"). States she knows her family wants her to get the help for her alcohol use and encouraged her to go to meeting that she admits she hasn't been to one yet b/c "I feel like a hypocrite b/c I'm still drinking." States Celexa is beneficial for her mood but it's her drinking that makes her depressed. Denies alcohol withdrawal symptoms here. Denies current si/hi, hallucinations, delusions. Feels safe here. VITAL SIGNS: See below. NEW TEST RESULTS: See below. CONSULTS: medicine who continue to follow pt daily Iron deficiency anemia. Supplement ordered. Continue to follow hemoglobin and hematocrit. Cirrhosis with alcoholic hepatitis. Model for end-stage liver disease (MELD) score of 23 and discriminate function of 41. The patient will benefit from steroids. Prednisone started. Continue aldactone. Followup with [facility] in [place]. Ammonia level appreciated. Followup comprehensive metabolic panel and INR. Counseling provided for alcohol cessation. Monitor for withdrawal. CURRENT MEDICATIONS: See below. MENTAL STATUS EXAMINATION: General Appearance: disheveled, appears stated age, hospital scrubs/clothing Build: overweight Demeanor: average, cooperative, angry and hesitant about going to rehab Activity: average, irritable Behavior: cooperative Speech: clear, spontaneous, normal volume, reg/rate,rhythm,volume Mood: angry and hesitant about going to rehab Mood "Why do I have to go to rehab" Affect: angry and hesitant about going to rehab Thought Process: logical/linear, angry and hesitant about going to rehab Thought Content (Delusions): none reported, denies SI, HI, AVH Thought Content (Other): none reported Thought Content (Aggressive): none reported Perception (Hallucinations): none reported Perception (Other): none reported Cognition (Impairment of): none reported Cognition(Intelligence Est.): average Oriented: Awake, Alert, Oriented times three Insight: poor regarding alcohol use Judgment: poor regarding alcohol use Psychosis: Denies DIAGNOSES: Major Depressive D/O recurrent, moderate, 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 Pt very angry and antagonistic during meeting yesterday. Seems unconcerned with medical sequelae of alcoholism and resultant liver failure. Pt seen and states she's not ready to go to rehab b/c her chest and tongue still hurt. Pt seen by medicine daily and chest pain worked up and due to effects of alcoholism causing liver failure which I told pt. Pt angry and hesitant about going to rehab as asking why she can't just go to AA meetings. Talked about role rehab takes in aiding pt and setting pt up for life of sobriety once discharged. Pt states she'll go for 30 days but angry about that.. Denies alcohol withdrawal symptoms. States she's being social on the milieu which is beneficial. States she slept well last night. Feels she is tolerating her medications and they're beneficial. She is attending groups and finding them helpful. She denies insomnia, SI/HI, hallucinations, delusions, a lcohol withdrawal symptoms. Pt feels safe here. MANAGEMENT PLAN: continue current plan. Refer to inpatient substance abuse treatment. Medications: ciwa protocol keppra 1500mg bid celexa 20mg daily Augmentin 875 mg BID Gabapentin 100 mg TID Mucinex Tab Er 600 mg BID Nystatin 5 ml TID SS Prednisone 40 mg DAILY [id number] mg DAILY Trazodone 50 mg QHSP PRN PO INSOMNIA TIME SPENT: 30 minutes. Vital Signs Vital Signs Date Time Temp Pulse Resp B/P (MAP) Pulse Ox O2 Delivery O2 Flow Rate FiO2 10/01/18 06:19 98.3 78 14 124/62 (82) Room Air Laboratory Data 24H Labs Laboratory Tests 2 09/30/18 11:59: Bedside Glucose (Misc Panel) 173H 09/30/18 17:09: Bedside Glucose (Misc Panel) 304H 09/30/18 20:08: Bedside Glucose (Misc Panel) 361H 10/01/18 06:24: Bedside Glucose (Misc Panel) 86 10/01/18 06:49: Nucleated Red Blood Cells % (auto) 0.0, Anion Gap 6L, Glomerular Filtration Rate > 60.0, Blood Urea Nitrogen 7, Creatinine 0.87, Sodium Level 142, Potassium Level 4.4, Chloride Level 109H, Carbon Dioxide Level 27, Calcium Level 8.2L, Aspartate Amino Transf (AST/SGOT) 74H, Alanine Aminotransferase (ALT/SGPT) 57, Alkaline Phosphatase 221H, Total Bilirubin 3.2H, Total Protein 6.8, Albumin 2.0L, Magnesium Level 1.6L, Albumin/Globulin Ratio 0.42L CBC/BMP Laboratory Tests 10/01/18 06:49 Red Blood Count 3.17 L, Mean Corpuscular Volume 102.2 H, Mean Corpuscular Hemoglobin 33.1 H, Mean Corpuscular Hemoglobin Concent 32.4, Red Cell Distribution Width 21.0 H, Calcium Level 8.2 L, Aspartate Amino Transf (AST/SGOT) 74 H, Alanine Aminotransferase (ALT/SGPT) 57, Alkaline Phosphatase 221 H, Total Bilirubin 3.2 H, Total Protein 6.8, Albumin 2.0 L Current Medications Current Medications Al Hydrox/Mg Hydrox/Simethicone (Mylanta) 30 ml Q4HP PRN PO HEARTBURN/INDIGESTION; Start 09/24/18 at 14:30 Albuterol/ Ipratropium (Duoneb (Ipr 0.5mg/Alb 2.5mg)) 3 ml RQID NEB Last administered on 10/01/18at 07:54; Start 09/27/18 at 20:00 Amoxicillin/ Clavulanate Potassium (Augmentin) 875 mg BID PO Last administered on 09/29/18at 10:12; Start 09/24/18 at 21:00; Stop 09/29/18 at 12:00; Status DC Chlorhexidine Gluconate (Peridex Oral Rinse) 15 ml TID MT ; Start 09/26/18 at 16:00; Status Cancel Citalopram Hydrobromide (CeleXA) 20 mg DAILY PO Last administered on 10/01/18at 08:25; Start 09/25/18 at 09:00 Cod Liver Oil/ Zinc Oxide (Desitin) apply to anal area BID TOP Last administered on 10/01/18at 08:24; Start 09/25/18 at 09:00 Dextrose (Dextrose 50%) 25 ml ASDIRECTED PRN IV SEE LABEL COMMENTS; Start 09/25/18 at 09:45 Ferrous Gluconate (Fergon) 324 mg DAILY PO Last administered on 10/01/18at 08:25; Start 09/25/18 at 09:00 Folic Acid (Folic Acid) 1 mg DAILY PO Last administered on 10/01/18at 08:26; Start 09/24/18 at 09:00 Gabapentin (Neurontin) 100 mg TID PO Last administered on 10/01/18at 08:26; Start 09/24/18 at 16:00 Glipizide (Glucotrol) 5 mg DAILY@0730 PO ; Start 09/25/18 at 07:30; Stop 09/25/18 at 07:59; Status DC Glucagon (Glucagon) 1 mg ASDIRECTED PRN SC SEE LABEL COMMENTS; Start 09/25/18 at 09:45 Glucose (Glucose) 16 GM ASDIRECTED PRN PO SEE LABEL COMMENTS; Start 09/25/18 at 09:45 Guaifenesin (Mucinex Tab Er) 600 mg BID PO Last administered on 10/01/18at 08:25; Start 09/27/18 at 21:00 Home Med (Med Rec Complete!) ASDIRECTED XX ; Start 09/24/18 at 15:30; Stop 09/24/18 at 15:37; Status DC Ibuprofen (Advil) 400 mg Q6HP PRN PO PAIN Last administered on 10/01/18 07:22; Start 09/24/18 at 14:30 Insulin Human Lispro (HumaLOG INSULIN) See Protocol Table AC SC Last administered on 09/30/18 17:12; Start 09/25/18 at 12:00 Insulin Human Lispro (HumaLOG INSULIN) See Protocol Table QHS SC Last administered on 09/30/18 20:17; Start 09/25/18 at 21:00 Lactobacillus Acidophilus (Bacid) 1 ea BIDWM PO Last administered on 10/01/18 08:26; Start 09/25/18 at 18:00 Levetiracetam (Keppra) 1,500 mg BID PO Last administered on 10/01/18 08:25; Start 09/24/18 at 21:00 Loperamide HCl (Imodium) 2 mg ASDIRECTED PRN PO DIARRHEA Last administered on 09/29/18at 07:43; Start 09/26/18 at 09:45 Lorazepam (Ativan) 2 mg ASDIRECTED PRN PO SEE PROTOCOL; Start 09/24/18 at 14:30; Status Cancel Magnesium Hydroxide (Milk Of Magnesia) 30 ml DAILYPRN PRN PO CONSTIPATION; Start 09/24/18 at 14:30 Magnesium Oxide (Mag-Ox) 400 mg BID PO Last administered on 10/01/18 08:25; Start 09/28/18 at 09:00 Magnesium Oxide (Mag-Ox) 400 mg DAILY PO Last administered on 09/27/18 08:44; Start 09/25/18 at 13:00; Stop 09/28/18 at 08:08; Status DC Multivitamins (Theragram-M) 1 tab DAILY PO Last administered on 10/01/18 08:25; Start 09/24/18 at 09:00 Mupirocin (Bactroban 2% Ointment) APPLY TO BUTTOCKS BID TOP Last administered on 09/25/18 10:58; Start 09/25/18 at 09:00; Stop 09/25/18 at 13:06; Status DC Nystatin (Mycostatin) 5 ml TID SS Last administered on 10/01/18 08:25; Start 09/26/18 at 16:00 Pantoprazole Sodium (Protonix) 40 mg DAILY PO Last administered on 10/01/18at 08:26; Start 09/25/18 at 09:00 Potassium Chloride (Micro-K Extencaps) 20 meq BID PO Last administered on 10/01/18 08:25; Start 09/24/18 at 21:00 Prednisone (Deltasone) 40 mg DAILY PO Last administered on 10/01/18 08:26; Start 09/26/18 at 09:00 Spironolactone (Aldactone) 50 mg DAILY PO Last administered on 10/01/18 08:25; Start 09/25/18 at 09:00 Thiamine HCl (Thiamine HCl) 100 mg BID PO Last administered on 09/26/18at 21:16; Start 09/24/18 at 21:00; Stop 09/27/18 at 04:14; Status DC Trazodone HCl (Desyrel) 50 mg QHSP PRN PO INSOMNIA Last administered on 09/27/18 22:25; Start 09/27/18 at 15:00 Allergies Coded Allergies: No Known Drug Allergy (Verified Allergy, Unknown, 09/24/18) PHOEBE ARROYO DO Oct 01, 2018 9:05 am
[2018-10-01 18:00] VITALS: BP 130/68
[2018-10-02 06:55] LABS: HEMOGLOBIN 9.6 g/dl (12.0-15.5); MEAN CORPUSCULAR HEMOGLOBIN 33.7 pg (27.0-33.0); MEAN CORPUSCULAR HGB CONC 33.1 g/dl (32.0-36.5); MEAN CORPUSCULAR VOLUME 101.8 fl (80.0-96.0); PLATELET COUNT, AUTOMATED 109 10^3/uL (150-450); RED BLOOD COUNT 2.85 10^6/uL (4.00-5.40)
[2018-10-02 07:09] LABS: INR 1.63; PROTHROMBIN TIME 19.6 SECONDS (12.1-14.4)
[2018-10-02 07:15] VITALS: BP 141/67
[2018-10-02 07:17] LABS: ALBUMIN 1.9 GM/DL (3.2-5.2); ALT/SGPT 51 U/L (12-78); BLOOD UREA NITROGEN 8 MG/DL (7-18); CALCIUM LEVEL 8.1 MG/DL (8.5-10.1); CARBON DIOXIDE LEVEL 26 MEQ/L (21-32); CHLORIDE LEVEL 110 MEQ/L (98-107); CREATININE FOR GFR 0.84 MG/DL (0.55-1.30); GLOMERULAR FILTRATION RATE > 60.0 (>60); GLUCOSE, FASTING 107 MG/DL (70-100); MAGNESIUM LEVEL 1.7 MG/DL (1.8-2.4); POTASSIUM SERUM 4.5 MEQ/L (3.5-5.1); SODIUM LEVEL 142 MEQ/L (136-145); TOTAL PROTEIN 6.1 GM/DL (6.4-8.2)
[2018-10-02] MEDS: PANTOPRAZOLE 40MG TAB (PROTONIX) PO SCH (08:04)
[2018-10-02] MEDS: guaiFENesin ER 600 MG TAB PO SCH (08:04)
[2018-10-02] MEDS: predniSONE 20 MG TAB PO SCH (08:04)
[2018-10-02] MEDS: MAGNESIUM OXIDE 400 MG TAB (MAG-OX) PO SCH (08:04)
[2018-10-02] MEDS: SPIRONOLACTONE 50 MG TAB PO SCH (08:04)
[2018-10-02] MEDS: POTASSIUM CHLORIDE 10 MEQ SR TABLET PO SCH (08:04)
[2018-10-02] MEDS: NYSTATIN 500,000 U/5 ML SUSP UDC SS SCH (08:04)
[2018-10-02] MEDS: levETIRAcetam 250MG TABLET (KEPPRA) PO SCH (08:04)
[2018-10-02] MEDS: CitaloPRAM (CeleXA) 20 MG TAB PO SCH (08:04)
[2018-10-02] MEDS: MULTIVITAMINS/MINERALS THERAP 1 TAB PO SCH (08:04)
[2018-10-02] MEDS: GABAPENTIN 100 MG CAP PO SCH (08:04)
[2018-10-02] MEDS: FERROUS GLUCONATE 324 MG TAB PO SCH (08:04)
[2018-10-02] MEDS: LACTOBACILLUS ACIDOPHILUS CAP (BACID) PO SCH (08:04)
[2018-10-02] MEDS: FOLIC ACID 1 MG TAB PO SCH (08:04)
[2018-10-02] MEDS: DIAPER RELIEF PASTE (DESITIN) 60GM TOP SCH (08:05)
[2018-10-02] MEDS: HumaLOG INSULIN (NovoLOG) PER UNIT SC SCH (08:06)
== END 2018-10-02 08:15 | DRG 751 ==
LOC: M ED 11:23 → M ED INP 14:29 → M PSY 16:23
PROVIDERS: ADMIT Psychiatry & Neurology Psychiatry; ATTEND Psychiatry & Neurology Psychiatry
DX: F33.1 Major depressive disorder, recurrent, moderate (principal); K70.30 Alcoholic cirrhosis of liver without ascites; R45.851 Suicidal ideations; E11.9 Type 2 diabetes mellitus without complications; Z68.41 Body mass index [BMI] 40.0-44.9, adult; E83.42 Hypomagnesemia; D50.9 Iron deficiency anemia, unspecified; G40.909 Epilepsy, unspecified, not intractable, without status epilepticus; L98.419 Non-pressure chronic ulcer of buttock with unspecified severity; K70.10 Alcoholic hepatitis without ascites; F10.10 Alcohol abuse, uncomplicated; Z79.899 Other long term (current) drug therapy; K21.9 Gastro-esophageal reflux disease without esophagitis; G47.33 Obstructive sleep apnea (adult) (pediatric); E66.9 Obesity, unspecified; J30.9 Allergic rhinitis, unspecified; R51 Headache; E87.6 Hypokalemia; F41.9 Anxiety disorder, unspecified; R19.7 Diarrhea, unspecified